=== PATIENT | male | born 1930 | race Caucasian/White ===

== ENCOUNTER 2016-12-05 12:28 | Emergency (ER) | payer OTHER ==
[~2016-12-05] VITALS: Ht 182.9 cm; Wt 86.0 kg
[~2016-12-05 12:28] MED LIST: ALBU0.5N2; ALBUAER2 INH; AMLO-110 PO; ATRINS NEB; GFNSR600 PO; LEVO-366 PO; OMEP20CA9 PO; OXGN; PRAV20TA PO; PRED10TA PO; PRLSR20 PO
[2016-12-05 12:31] VITALS: TEMP 36.5; Ht 182.9 cm; Wt 86.0 kg
[2016-12-05] MEDS ORDERED: OXYCODONE HCL IR 5 MG TAB (IMMEDIATE RELEASE) PO STA (12:55)
--- NOTE | 2016-12-05 12:56 | EMERGENCY ROOM VISIT NOTE ---
History Report prepared by Jaret: Nohemy Mansfield Under the Supervision of: Dr. Yeison White D.O. First contact with patient: 12:48 Chief Complaint: HIP PAIN Stated Complaint: HIP PAIN History of Present Illness The patient is an 86 year old male who presents to the Emergency Room with complaints of persistent hip pain since 0200 this morning. He states he has experienced intermittent right hip pain for years, but this morning it really worsened. He was unable to lay down or sleep because of his discomfort. The pain radiates into his low back and he rates his discomfort as an 8/10. Tylenol has provided no relief. The patient denies any recent trauma or injury. He denies any recent fevers, rashes or abdominal pain. Source of History: patient Onset: 199 this morning Position: other (right hip) Timing: other (persistent) Modifying Factors (Worsening): rest (laying down) Modifying Factors (Relieving): tylenol Associated Symptoms: No fevers, No abdominal pain, No rash Review of Systems See HPI for pertinent positives & negatives. A total of 10 systems reviewed and were otherwise negative. Past Medical & Surgical Medical Problems: (1) COPD (chronic obstructive pulmonary disease) Family History FHx: cancer FHx: heart disease Social History Smoking Status: Never Smoker Alcohol Use: none Drug Use: none Marital Status: Housing Status: assisted living Occupation Status: retired Current/Historical Medications Scheduled Amlodipine (Norvasc), 5 MG PO DAILY Budesonide/Formoterol Fumarate (Symbicort 80/4.5 Inhaler), 2 PUFFS INH DAILY Home O2 Therapy (Oxygen), 1.5 LITER NA HS & PRN Home O2 Therapy (Oxygen), 1.5 LITER NA PRN Levofloxacin (Levofloxacin), 500 MG PO UD Omeprazole (Prilosec), 20 MG PO DAILY Pravastatin (Pravachol ), 20 MG PO DAILY Prednisone (Prednisone Tab), 40 MG PO DAILY Prednisone Tab (Prednisone), 2 TABS PO DAILY Scheduled PRN Albuterol (Ventolin Hfa), 2 PUFFS INH for SOB/Wheezing Albuterol Sulf (Albuterol Sulfate), 2.5 MG INH Q4H PRN for Shortness of Breath Guaifenesin La (Guaifenesin Er), 600 MG PO Q12H PRN for Oxycodone Immediate Rel Tab (Roxicodone Ir), 1-2 TAB PO Q4H PRN for Severe Pain Allergies Coded Allergies: Moxifloxacin (Verified Allergy, Severe, SHORTNESS OF BREATH, 12/05/16) Potassium Iodide (Verified Allergy, Unknown, `, 12/05/16) Aspirin (Verified Adverse Reaction, Mild, UPSET STOMACH, 12/05/16) Physical Exam Vital Signs Date Time Temp Pulse Resp B/P (MAP) Pulse Ox O2 Delivery O2 Flow Rate FiO2 12/05/16 15:21 65 16 153/81 97 12/05/16 14:25 61 16 160/136 97 Room Air 12/05/16 12:31 36.5 71 18 170/90 97 Room Air Physical Exam GENERAL: Patient is awake, alert, anxious and uncomfortable appearing. EYES: The conjunctivae are clear. The pupils are round and reactive. EARS, NOSE, MOUTH AND THROAT: The nose is without any evidence of any deformity. Mucous membranes are moist tongue is midline NECK: The neck is nontender and supple. RESPIRATORY: Scattered expiratory wheezing in all lung oshea. No tachypnea or conversational dyspnea noted. CARDIOVASCULAR: Regular rate and rhythm noted there no murmurs rubs or gallops normal S1 normal S2 GASTROINTESTINAL: The abdomen is soft. Bowel sounds are present in all quadrants. Abdomen is nontender PELVIS: The Pelvis is stable. No tenderness to palpation is noted. BACK: No midline tenderness to palpation. There was right sided paravertebral muscle tenderness in the lumbar spine, and tenderness in the sciatic region. MUSCULOSKELETAL/EXTREMITIES: There is no evidence of gross deformity full range of motion is noted in the hips and shoulders SKIN: Pedal edema bilaterally. There is no obvious evidence of any rash. There are no petechiae, pallor or cyanosis noted. NEUROLOGIC: Achilles tendon reflexes are 2+ bilaterally. Great toe raise was symmetric. Patient is awake, alert and oriented x3 strength is symmetric patellar reflexes are 2+ bilaterally Medical Decision & Procedures ER Provider Diagnostic Interpretation: Radiology results as stated below per my review and radiologist interpretation: RIGHT HIP 2 VIEWS CLINICAL HISTORY: Right hip pain. No history of trauma. FINDINGS: AP and frog-leg views of the right hip are obtained. No prior studies are available for comparison at the time of dictation. The skeletal structures are osteopenic. No fracture is seen in the right hip or the visualized right hemipelvis. There is mild arthritic change in the right hip. Mild loss of joint space is noted medially. Mild degenerative change is noted in the right sacroiliac joint. The overlying soft tissues are within normal limits. IMPRESSION: Osteopenia and mild arthritic change as above. No acute bony abnormality is seen in the right hip. Electronically signed by: Toño Alcala M.D. 12/05/2016 2:19 PM L-SPINE MIN 4 VIEWS ROUTINE CLINICAL HISTORY: Low back and right hip pain COMPARISON STUDY: MRI performed December 2007 FINDINGS: There are moderately advanced multilevel degenerative changes with multilevel disc space narrowing. There is narrowing of the AP diameter spinal canal and underlying spinal stenosis is suspected. No acute fractures are visualized. No destructive lesions are evident. IMPRESSION: 1. No acute fractures 2. Moderate multilevel degenerative change with suspected underlying spinal stenosis Electronically signed by: George Young M.D. 12/05/2016 2:17 PM Medications Administered Medications (Trade) Dose Ordered Sig/Gilbert Route Start Time Stop Time Status Last Admin Dose Admin Dexamethasone Sodium Phosphate (Decadron Inj) 10 mg NOW ONCE IM 12/05/16 13:00 12/05/16 13:01 DC 12/05/16 13:28 10 MG Oxycodone HCl (Roxicodone Immediate Rel Tab) 5 mg NOW STAT PO 12/05/16 12:55 12/05/16 12:57 DC 12/05/16 13:26 5 MG ED Course 1250: The patient was evaluated in room B8. A complete history and physical examination were performed. 1255: Oxycodone HCl 5 mg PO. 1300: Decadron 10 mg IM. 1440: I reevaluated the patient. He is feeling much better. I discussed his results and discharge instructions and he verbalized complete understanding and agreement. Medical Decision Prior records/ancillary studies reviewed and summarized above. Nursing notes reviewed. Additional history obtained from Nursing Staff. Differential diagnosis: Etiologies such as metabolic, infection, hypo/hyperglycemia, electrolyte abnormalities, cardiac sources, intracerebral event, toxicologic, neurologic, as well as others were entertained. The patient is an 86-year-old male who presented to the emergency department with right sided reproducible low back pain. The pain appeared to be over his lumbar paravertebral musculature but also went into his right sacroiliac joint. The patient complained of hip pain but the hip pain appear to be posterior and lateral and I feel was more referred pain. I discussed the patient's radial graphic studies with him. He was treated with pain medication in the emergency department. He was also given steroids. On subsequent reevaluation he was feeling much better. He was encouraged to rest and avoid any strenuous activity. He was also encouraged to continue all medications as prescribed. He was encouraged to follow-up with his family doctor soon as possible for further evaluation for possible further testing if needed. He was also given encouraged return the emergency Department immediately if symptoms change worsen or the need arises. Medication Reconcilliation Current Medication List: was personally reviewed by me Blood Pressure Screening Patient's blood pressure: Elevated blood pressure Blood pressure disposition: Referred to PCP Impression Primary Impression: Low back pain Additional Impression: Sacroiliitis Scribe Attestation The scribe's documentation has been prepared under my direction and personally reviewed by me in its entirety. I confirm that the note above accurately reflects all work, treatment, procedures, and medical decision making performed by me. Departure Information Dispostion Home / Self-Care Prescriptions Oxycodone Immediate Rel Tab (ROXICODONE IR) 5 Mg Tab 1-2 TAB PO Q4H Y for Severe Pain, #24 TAB Prov: Yeison White, DO 12/05/16 Prednisone (Prednisone Tab) 20 Mg Tab 40 MG PO DAILY, #10 TAB Prov: Yeison White, DO 12/05/16 Patient Instructions ED Low Back Pain Injury, My [facility] Additional Instructions Call your family to schedule a follow-up appointment. Rest and avoid any strenuous activity. Continue all medications as prescribed. Return to the emergency department immediately if symptoms change worsen or the need arises. Problem Qualifiers Primary Impression: Low back pain Chronicity: acute Back pain laterality: right Sciatica presence: without sciatica Qualified Codes: M54.5 - Low back pain
[2016-12-05] MEDS ORDERED: DEXAMETHASONE SOD INJ 10 MG/ML VIAL IM ONE (13:00)
--- NOTE | 2016-12-05 14:18 | DIAGNOSTIC IMAGING REPORT ---
L-SPINE MIN 4 VIEWS ROUTINE CLINICAL HISTORY: Low back and right hip pain COMPARISON STUDY: MRI performed December 2007 FINDINGS: There are moderately advanced multilevel degenerative changes with multilevel disc space narrowing. There is narrowing of the AP diameter spinal canal and underlying spinal stenosis is suspected. No acute fractures are visualized. No destructive lesions are evident. IMPRESSION: 1. No acute fractures 2. Moderate multilevel degenerative change with suspected underlying spinal stenosis Electronically signed by: George Young M.D. 12/05/2016 2:17 PM Dictated Date/Time: 12/05/2016 2:15 PM
[2016-12-05] MEDS ORDERED: ALBINSX INH (14:19)
[2016-12-05] MEDS ORDERED: SYMIN/8045 INH (14:19)
[2016-12-05] MEDS ORDERED: GUAI1TAB75 PO (14:19)
[2016-12-05] MEDS ORDERED: PRVHFAIN INH (14:19)
[2016-12-05] MEDS ORDERED: LVQ500 PO (14:19)
[2016-12-05] MEDS ORDERED: OXGN (14:19)
--- NOTE | 2016-12-05 14:20 | DIAGNOSTIC IMAGING REPORT ---
RIGHT HIP 2 VIEWS CLINICAL HISTORY: Right hip pain. No history of trauma. FINDINGS: AP and frog-leg views of the right hip are obtained. No prior studies are available for comparison at the time of dictation. The skeletal structures are osteopenic. No fracture is seen in the right hip or the visualized right hemipelvis. There is mild arthritic change in the right hip. Mild loss of joint space is noted medially. Mild degenerative change is noted in the right sacroiliac joint. The overlying soft tissues are within normal limits. IMPRESSION: Osteopenia and mild arthritic change as above. No acute bony abnormality is seen in the right hip. Electronically signed by: Toño Alcala M.D. 12/05/2016 2:19 PM Dictated Date/Time: 12/05/2016 2:18 PM
[2016-12-05] MEDS ORDERED: PRED20TA2 PO (14:44)
[2016-12-05] MEDS ORDERED: OXYC1TAB3 PO (14:44)
[2016-12-05 15:21] VITALS: BP 153/81; PULSE 65; O2SAT 97
== END 2016-12-05 15:22 | disposition home or self-care (01) ==
LOC: C.EDB 12:29
DX: M54.5 Low back pain (principal); M46.1 Sacroiliitis, not elsewhere classified; J44.9 Chronic obstructive pulmonary disease, unspecified; Z80.9 Family history of malignant neoplasm, unspecified; Z82.49 Family history of ischemic heart disease and other diseases of the circulatory system; Z79.899 Other long term (current) drug therapy; Z79.52 Long term (current) use of systemic steroids

== ENCOUNTER → 2017-06-27 | Outpatient (CLI) | payer OTHER ==
[~2017-06-27] MED LIST changes: +ALBINSX INH; -ALBU0.5N2; -ALBUAER2 INH; -ATRINS NEB; -GFNSR600 PO; +GUAI1TAB75 PO; -LEVO-366 PO; +LVQ500 PO; -PRLSR20 PO; +PRVHFAIN INH; +SYMIN/8045 INH
--- NOTE | 2017-06-27 14:45 | DIAGNOSTIC IMAGING REPORT ---
CHEST 2 VIEWS ROUTINE HISTORY: 86 years-old Male R06.02 acute shortness of breath COMPARISON: Chest radiographs 04/12/2016, chest CT 04/20/2016 TECHNIQUE: PA and lateral views of the chest FINDINGS: Cardiac silhouette is within normal limits. Lungs are hyperinflated with emphysematous changes redemonstrated. Confluent areas of pleural-parenchymal scarring and bronchiectasis again noted within the upper lung zones bilaterally causing hilar retraction and elevation. There is no pneumothorax, pleural effusion or new focal airspace consolidation. Bones appear grossly intact. IMPRESSION: 1. Emphysema without acute process. 2. Unchanged confluent areas of pleural-parenchymal scarring/fibrosis and bronchiectasis again noted within the upper lung zones bilaterally causing hilar retraction and elevation. The above report was generated using voice recognition software. It may contain grammatical, syntax or spelling errors. Electronically signed by: Amado Swain M.D. 06/27/2017 2:43 PM Dictated Date/Time: 06/27/2017 2:41 PM
== END | disposition home or self-care (01) ==
LOC: C.RAD1850 14:28
PROVIDERS: ATTEND Physician Assistant
DX: R06.02 Shortness of breath (principal); J43.9 Emphysema, unspecified; R91.8 Other nonspecific abnormal finding of lung field

== ENCOUNTER 2018-07-19 10:13 | Inpatient (IN) ==
[2018-07-19] MEDS ORDERED: LEVALBUTEROL 1.25MG/0.5ML NEB NEB STA (11:27)
--- NOTE | 2018-07-19 11:46 | XRay Report ---
XR chest 1V portable CLINICAL HISTORY: Atypical chest pain COMPARISON STUDY: 04/09/2018 FINDINGS: There is persistent pulmonary emphysema. There is stable bilateral superior hilar retractio n. There is biapical fibronodular scarring with right apical pleural thickening. There are no new are as of parenchymal consolidation. There is no failure. There is minimal blunting of the lateral costop hrenic angles.[ IMPRESSION: 1. No significant change from the preceding study 2. Persistent emphysema with stable biapical scarring and superior hilar retraction Electronically signed by: George Young M.D. 07/19/2018 11:45 AM
[2018-07-19] MEDS ORDERED: MAGNESIUM SULFATE / D5W 1 GM/100 ML BAG IV ONE (11:51)
[2018-07-19] MEDS ORDERED: methylPREDNISolone 125 MG/2 ML VIAL IV STA (11:51)
[2018-07-19] MEDS ORDERED: DOXYCYCLINE HYCLATE 100 MG CAP PO STA (11:52)
[2018-07-19 12:11] LABS: Hemoglobin 13.5 g/dL (14.0-18.0); Mean Corpuscular Hemoglobin 31.3 pg (25-34); Mean Corpuscular Hgb Conc 33.8 g/dL (32-36); Mean Corpuscular Volume 92.8 fL (80-100); Mean Platelet Volume 11.2 fL (7.4-10.4); Platelet Count 118 K/uL (130-400); RDW Coefficient of Variation 13.6 % (11.5-14.5); RDW Standard Deviation 46.4 fL (36.4-46.3); Red Blood Count 4.31 M/uL (4.7-6.1); White Blood Count 2.01 K/uL (4.8-10.8)
[2018-07-19 12:16] LABS: Alanine Aminotransferase 21 U/L (12-78); Albumin Level 3.5 gm/dl (3.4-5.0); Aspartate Aminotransferase 23 U/L (15-37); BUN Creatinine Ratio 6.2 (10-20); Blood Urea Nitrogen 6 mg/dl (7-18); Calcium 8.9 mg/dl (8.5-10.1); Carbon Dioxide 28 mmol/L (21-32); Chloride 108 mmol/L (98-107); Creatinine Clr Calc Pharmacy 57.1 ml/min; Est GFR (African American) 78.1; Est GFR (Non-African American) 67.4; Glucose 97 mg/dl (70-99); Lipase 106 U/L (73-393); Potassium 3.8 mmol/L (3.5-5.1); Sodium 141 mmol/L (136-145)
[2018-07-19 12:21] LABS: Albumin Globulin Ratio 1.1 (0.9-2); Alkaline Phosphatase 77 U/L (45-117); Bilirubin,Total 0.4 mg/dl (0.2-1); Creatine Kinase 140 U/L (39-308); Creatine Kinase MB 4.1 ng/ml (0.5-3.6); Globulin 3.1 gm/dl (2.5-4.0); NT Pro B Type Natriuretic Pept 127 pg/ml (0-1800); Total Protein 6.6 gm/dl (6.4-8.2); Troponin I < 0.015 ng/ml (0-0.045)
[2018-07-19 12:39] LABS: Influenza B virus by PCR Neg for Influ B (Neg)
[2018-07-19 12:59] LABS: RBC Morphology Unremarkable
[2018-07-19 13:09] LABS: ALC (manual) 0.96 K/uL (1.2-3.4); Basophils # (manual) 0.02 K/uL (0-0.2); Basophils % (manual) 0.9 %; Eosinophils # (manual) 0.03 K/uL (0-0.5); Eosinophils % (manual) 1.7 %; Lymphocytes # (manual) 0.38 K/uL (1.2-3.4); Lymphocytes % (manual) 19.1 %; Monocytes # (manual) 0.25 K/uL (0.11-0.59); Monocytes % (manual) 12.2 %; Neutrophils # (manual) 0.75 K/uL (1.4-6.5); Neutrophils % (manual) 37.4 %; Reactive Lymphocytes # (manual) 0.58 K/uL
[2018-07-19] MEDS ORDERED: OSELTAMIVIR PHOSPHATE 75 MG CAP PO STA (13:32)
--- NOTE | 2018-07-19 14:23 | History & Physical Report ---
Date of Service July 19, 2018 Assessment & Plan (1) Flu: Patient presently afebrile, hemodynamically stable. Adequate oxygenation on 3L [place]. Mild respiratory distress and hypoxia noted with ambulation. Influenza A positive -Admit to medical floor with telemetry monitoring -Tamiflu 75mg po BID -Tylenol as needed for fever/pain -Check procalcitonin although no obvious infiltrate on CXR to suggest PNA (2) COPD (chronic obstructive pulmonary disease): Patient with history of O2 dependent COPD. -Supplemental O2 as needed -DuoNebs q 4 hours -Albuterol q 2 hours PRN -Flutter valve and vibration vest -IS -Pulmonary consult - patient is followed by Geovanni Nicolas -Family reports some acute mental status changes with steroid use during last hospital stay. Possibly secondary to medication effects, delirium. Will avoid systemic steroids for now. Encourage non-pharmacologic delirium prevention strategies to include frequent orientation, minimizing interruptions in sleep, maintaining regular day/night schedule and ambulation when safe. (3) Hypertension: Blood pressure well controlled at present -Continue Amlodipine 5mg po daily -Continue to monitor (4) Dyslipidemia: Chronic -Continue Pravastatin daily F/E/N- Heplock. Encourage PO intake, low Na diet. Monitor electroltyes and replete as needed Ppx - Lovenox 30 Code - DNR/DNI per discussion with patient Dispo - Med-Tele History of Present Illness Chief Complaint: SOB Primary Care Provider: Nilay Nicolas PA-C Mr. 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 Symptoms began the evening of 07/15 while patient was in [place] on a casino trip. His SOB progressed with severe worsening in the last two days. He becomes quite dyspneic with ambulating short distances. Also complaining of chills and body aches. One episode of nausea with no vomiting. No abdominal pain/diarrhea/constipation. He additionally denies CP/palpitations/orthopnea/edema. No history of DVT. He uses a nebulizer machine with Albuterol twice daily. He also uses a vibration vest as well. He increased his O2 at home to 4L. Patient travelled to [place] on Sunday and [place] on Sunday for a casino trip. In the ER he was slightly tachycardic to 102bpm, slighlty tachypnic at 89% on 3L [place]. Patient with mild respiratory distress after ambulating to the restroom in his room. Pursed lip breathing and hypoxia which resolved with being in bed and still. ER Course: Doxycycline, Levalbuterol, Magnesium sulfate 1gm, Solumedrol 125mg Allergies Allergy/AdvReac Type Severity Reaction Status Date / Time moxifloxacin Allergy Severe SHORTNESS Verified 07/19/18 10:56 OF BREATH potassium iodide Allergy Unknown ` Verified 07/19/18 10:56 aspirin AdvReac Mild UPSET Verified 07/19/18 10:56 STOMACH Home Medications Home Medications Medication Instructions Recorded Confirmed Type albuterol sulfate 2.5 mg INHALATION QID 03/16/18 07/19/18 History albuterol sulfate [Ventolin HFA] 2 puff INHALATION Q6H PRN 03/16/18 07/19/18 History omeprazole 20 mg PO DAILY PRN 03/16/18 07/19/18 History pravastatin 20 mg PO HS 03/16/18 07/19/18 History budesonide-formoterol [Symbicort] 2 inha INH BID #10.2 gm 03/21/18 07/19/18 Rx amlodipine 5 mg PO HS 07/19/18 07/19/18 History Past Med/Surg History Medical History COPD exacerbation (Acute 06/24/13) COPD (chronic obstructive pulmonary disease) 3L home O2 Pneumonia (Acute 06/24/13) Delirium Surgical History H/O colectomy History of lung surgery Family History Other No pertinent family history in first degree relatives Social History Preferred Language: Georgian Communication Ability: Effective 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 Beliefs That Will Affect Care: None marital status: Current Living Situation: Significant Other Other Information That Helps Us Care for You: No Feels Safe at Home: Yes Safety Concerns: Feels Safe At This Time Smoking Status: Former smoker Hx Alcohol Use: Yes Hx Substance Use: No Review of Systems All systems reviewed & are unremarkable except as noted in HPI & below Physical Exam Vital Signs (Past 24 Hours): Last Vital Signs Temp 37 C 07/19/18 10:25 Pulse 102 H 07/19/18 13:00 Resp 24 07/19/18 13:00 BP 148/80 H 07/19/18 11:27 Pulse Ox 89 L 07/19/18 13:00 Physical Exam: General: elderly male resting comfortably, NAD, non-toxic in appearance, AA&O x 4 Skin: warm, dry, intact, no rashes or lesions HEENT: NC/AT, PERRL, EOMI, anicteric sclera, conjunctiva without injection, external ear normal to inspection and nontender, nares patent, moist mucus membranes, dentures in place, no oropharyngeal lesions, neck supple, trachea midline, no LAD, no thyromegaly, no JVD Heart: +S1/S2, regular with respiratory variation, no m/r/g Lungs: diminished breath sounds, equal air entry bilaterally, coarse BS bilaterally, mild degree of end-expiratory wheezing with prolonged expiratory phase Abd: +BS, soft, NT/ND, no masses/organomegaly/ascites Ext: warm, 2+ pulses in UE/LE bilaterally, no clubbing/cyanosis or edema Neuro: nonfocal, patient AA&O x 4, speech intact, no facial droop, moving all extremities on command with equal strength 5/5 Results & Data Laboratory Results Lab Results 07/19/18 07/19/18 07/19/18 Range/Units 11:45 11:45 11:57 WBC 2.01 L (4.8-10.8) K/uL RBC 4.31 L (4.7-6.1) M/uL Hgb 13.5 L (14.0-18.0) g/dL Hct 40.0 L (42-52) % MCV 92.8 (80-100) fL MCH 31.3 (25-34) pg MCHC 33.8 (32-36) g/dL RDW Std Deviation 46.4 H (36.4-46.3) fL RDW Coeff of Iesha 13.6 (11.5-14.5) % Plt Count 118 L (130-400) K/uL MPV 11.2 H (7.4-10.4) fL Neutrophils % (Manual) 37.4 % Lymphocytes % (Manual) 19.1 % Reactive Lymphs % (Man) 28.7 % Monocytes % (Manual) 12.2 % Eosinophils % (Manual) 1.7 % Basophils % (Manual) 0.9 % Neutrophils # (Manual) 0.75 L (1.4-6.5) K/uL Total Absolute Neuts 0.75 L* (1.4-6.5) K/uL Lymphocytes # (Manual) 0.38 L (1.2-3.4) K/uL Reactive Lymphs # 0.58 K/uL Total Abs Lymphocytes 0.96 L (1.2-3.4) K/uL Monocytes # (Manual) 0.25 (0.11-0.59) K/uL Eosinophils # (Manual) 0.03 (0-0.5) K/uL Basophils # (Manual) 0.02 (0-0.2) K/uL RBC Morphology Unremarkable Sodium 141 (136-145) mmol/L Potassium 3.8 (3.5-5.1) mmol/L Chloride 108 H (98-107) mmol/L Carbon Dioxide 28 (21-32) mmol/L Anion Gap 6.0 (3-11) BUN 6 L (7-18) mg/dl Creatinine 1.00 (0.6-1.4) mg/dl Est Cr Clr Drug Dosing 57.1 ml/min Est GFR ( Amer) 78.1 Est GFR (Non-Af Amer) 67.4 BUN/Creatinine Ratio 6.2 L (10-20) Glucose 97 (70-99) mg/dl Calcium 8.9 (8.5-10.1) mg/dl Total Bilirubin 0.4 (0.2-1) mg/dl AST 23 (15-37) U/L ALT 21 (12-78) U/L Alkaline Phosphatase 77 (45-117) U/L Total Creatine Kinase 140 (39-308) U/L CK-MB (CK-2) 4.1 H (0.5-3.6) ng/ml CK/CKMB % Calc 2.9 (0-3.0) Troponin I < 0.015 (0-0.045) ng/ml NT-Pro-B Natriuret Pep 127 (0-1800) pg/ml Total Protein 6.6 (6.4-8.2) gm/dl Albumin 3.5 (3.4-5.0) gm/dl Globulin 3.1 (2.5-4.0) gm/dl Albumin/Globulin Ratio 1.1 (0.9-2) Lipase 106 (73-393) U/L Influenza Type A (PCR) Pos for Influ A A* (Neg) Influenza Type B (PCR) Neg for Influ B (Neg) Diagnostic Findings XR chest 1V portable CLINICAL HISTORY: Atypical chest pain COMPARISON STUDY: 04/09/2018 FINDINGS: There is persistent pulmonary emphysema. There is stable bilateral superior hilar retraction. There is biapical fibronodular scarring with right apical pleural thickening. There are no new areas of parenchymal consolidation. There is no failure. There is minimal blunting of the lateral costophrenic ang les.[ IMPRESSION: 1. No significant change from the preceding study 2. Persistent emphysema with stable biapical scarring and superior hilar retraction Electronically signed by: George Young M.D. 07/19/2018 11:45 AM Dictated: 07/19/18 1143 Transcribed: 07/19/18 1143 ECG Additional Comments: The study shows NSR at 74bpm, normal axis and intervals, no acute ischemic changes Code Status & VTE Plan Code Status DNR per discussion with patient VTE Prophylaxis Plan VTE Prophylaxis will be ordered: Yes (1) COPD (chronic obstructive pulmonary disease) COPD type: unspecified COPD Qualified Code(s): J44.9 - Chronic obstructive pulmonary disease, unspecified (2) Hypertension Hypertension type: essential hypertension Qualified Code(s): I10 - Essential (primary) hypertension
--- NOTE | 2018-07-19 14:50 | Emergency Department Note ---
Entered by Griselda Messer acting as a scribe for History of Present Illness General Chief complaint: Shortness of Breath/Dyspnea Stated complaint: sob/cough Time Seen by Provider: 07/19/18 11:03 Source: patient and family Mode of arrival: ambulatory Limitations: no limitations History of Present Illness Onset (ago): hour(s) (this morning when he woke up) Location: chest Severity: similar to prior episodes Pain Consistency: + constant Quality: + other (The patient states that it feels like his lungs are filled up with fluid.) Associated symptoms: + shortness of breath The patient is an 88 year old male who presents to the ED with complaints of constant shortness of breath that onset this morning when he woke up. The patient states that it feels like his lungs are filled up with fluid. He notes that this is similar to a previous episode on March 16 of this year. He states that he is on 3 liters of oxygen at home. Home Medications Home Medications Medication Instructions Recorded Confirmed Type albuterol sulfate 2.5 mg INHALATION QID 03/16/18 07/19/18 History albuterol sulfate [Ventolin HFA] 2 puff INHALATION Q6H PRN 03/16/18 07/19/18 History omeprazole 20 mg PO DAILY PRN 03/16/18 07/19/18 History pravastatin 20 mg PO HS 03/16/18 07/19/18 History budesonide-formoterol [Symbicort] 2 inha INH BID #10.2 gm 03/21/18 07/19/18 Rx amlodipine 5 mg PO HS 07/19/18 07/19/18 History Allergies Allergy/AdvReac Type Severity Reaction Status Date / Time moxifloxacin Allergy Severe SHORTNESS Verified 07/19/18 10:56 OF BREATH potassium iodide Allergy Unknown ` Verified 07/19/18 10:56 aspirin AdvReac Mild UPSET Verified 07/19/18 10:56 STOMACH Past Med/Surg History Medical History COPD exacerbation (Acute 06/24/13) COPD (chronic obstructive pulmonary disease) Pneumonia (Acute 06/24/13) Family History Other No pertinent family history in first degree relatives Social History Preferred Language: Malagasy Beliefs That Will Affect Care: None marital status: Current Living Situation: Spouse Feels Safe at Home: Yes Smoking Status: Never smoker Hx Alcohol Use: No Hx Substance Use: No Review of Systems See HPI for pertinent positives & negatives. and A total of 10 systems reviewed and were otherwise negative Physical Exam Vital Signs Vital Signs - 24 hr 07/19/18 10:25 07/19/18 11:22 07/19/18 11:27 Temperature 37 C Temperature Source Oral Sepsis Recent Fever Within 48 Hours No Sepsis Action Taken by Nursing No Action Required Pulse Rate 82 78 Pulse Rate [Right Finger] 75 Pulse Rhythm Regular Pulse Strength Normal Respiratory Rate 18 22 Respiratory Effort / Characteristics Spontaneous Short of Breath SOB on Exertion Non-Labored Spontaneous Respiratory Depth Shallow Normal Respiratory Pattern Tachypnea Regular Blood Pressure 152/97 H Blood Pressure [Right Arm] 148/80 H Blood Pressure Mean 115 Blood Pressure Mean [Right Arm] 102 Blood Pressure Position Lying Blood Pressure Position [Right Arm] Sitting Pulse Oximetry 97 99 100 Oxygen Delivery Method Nasal Cannula Nasal Cannula Nasal Cannula Oxygen Flow Rate 3 3 3 07/19/18 13:00 Temperature Temperature Source Sepsis Recent Fever Within 48 Hours Sepsis Action Taken by Nursing Pulse Rate Pulse Rate [Right Finger] 102 H Pulse Rhythm Pulse Strength Respiratory Rate 24 Respiratory Effort / Characteristics Labored SOB on Exertion Respiratory Depth Normal Respiratory Pattern Blood Pressure Blood Pressure [Right Arm] Blood Pressure Mean Blood Pressure Mean [Right Arm] Blood Pressure Position Blood Pressure Position [Right Arm] Pulse Oximetry 89 L Oxygen Delivery Method Nasal Cannula Oxygen Flow Rate 3 GENERAL: Awake, alert, well-appearing, in no distress HENT: Normocephalic, atraumatic. Oropharynx unremarkable. EYES: Normal conjunctiva. Sclera non-icteric. NECK: Supple. No nuchal rigidity. FROM. No masses. RESPIRATORY: Wheezing throughout all lung oshea. CARDIAC: Normal rate. Normal rhythm. No murmurs. No rubs. Extremities warm and well perfused. Pulses equal. No JVD. GI: Soft, non-distended. No tenderness to palpation. No rebound or guarding. No masses. RECTAL: Deferred. MUSCULOSKELETAL: Atraumatic. Chest examination reveals no tenderness. The back is symmetrical on inspection without obvious abnormality. There is no CVA tenderness to palpation. No joint edema. LOWER EXTREMITIES: Calves are equal size bilaterally and non-tender. No edema. No discoloration. NEURO: Normal sensorium. No sensory or motor deficits noted. Course 1122: Past medical records reviewed. The patient was evaluated in room C12, and a complete history and physical examination were performed. 1313: I reviewed the patient's case with Ayni Mathews Hospitalist- [facility]. She will evaluate the patient for further management. Administered Medications Discontinued Medications Doxycycline Hyclate (Vibramycin) 100 mg PO NOW STA Stop: 07/19/18 11:53 Last Admin: 07/19/18 12:14 Dose: 100 mg Documented by: [id number] Magnesium Sulfate/Dextrose (Magnesium Sulfate / D5w) 1 gm in 100 mls @ 100 mls/hr IV ONE ONE Stop: 07/19/18 12:50 Last Infusion: 07/19/18 13:57 Dose: 0 mls/hr Documented by: [id number] Admin: 07/19/18 12:13 Dose: 100 mls/hr Documented by: [id number] Levalbuterol HCl (Xopenex 1.25mg/0.5ml Neb) 1.25 mg NEB NOW STA Stop: 07/19/18 11:28 Last Admin: 07/19/18 12:13 Dose: 1.25 mg Documented by: [id number] Methylprednisolone (Solumedrol) 125 mg IV NOW STA Stop: 07/19/18 11:52 Last Admin: 07/19/18 12:14 Dose: 125 mg Documented by: [id number] Oseltamivir Phosphate (Tamiflu) 75 mg PO NOW STA Stop: 07/19/18 13:33 Last Admin: 07/19/18 14:00 Dose: 75 mg Documented by: [id number] Medical Decision Making Differential Diagnosis Differential diagnosis: Etiologies such as infections, reactive airway disease, COPD, pneumonia, pleural effusion, pulmonary edema, ARDS, pneumothorax, CHF, cardiac ischemia, cardiac tamponade, dysrhythmia, anemia, pulmonary embolism, musculoskeletal, gastrointestinal process, as well as others were entertained. Medical Records Attestation: I reviewed the patient's medical records. Home Medications Current Medication List: was personally reviewed by me Laboratory Data Attestation: I reviewed the patient's lab results. Result diagrams: 07/19/18 11:45 07/19/18 11:45 Lab Results 03/29/19 03/29/19 03/29/19 Range/Units 11:45 11:45 11:57 WBC 2.01 L (4.8-10.8) K/uL RBC 4.31 L (4.7-6.1) M/uL Hgb 13.5 L (14.0-18.0) g/dL Hct 40.0 L (42-52) % MCV 92.8 (80-100) fL MCH 31.3 (25-34) pg MCHC 33.8 (32-36) g/dL RDW Std Deviation 46.4 H (36.4-46.3) fL RDW Coeff of Iesha 13.6 (11.5-14.5) % Plt Count 118 L (130-400) K/uL MPV 11.2 H (7.4-10.4) fL Neutrophils % (Manual) 37.4 % Lymphocytes % (Manual) 19.1 % Reactive Lymphs % (Man) 28.7 % Monocytes % (Manual) 12.2 % Eosinophils % (Manual) 1.7 % Basophils % (Manual) 0.9 % Neutrophils # (Manual) 0.75 L (1.4-6.5) K/uL Total Absolute Neuts 0.75 L* (1.4-6.5) K/uL Lymphocytes # (Manual) 0.38 L (1.2-3.4) K/uL Reactive Lymphs # 0.58 K/uL Total Abs Lymphocytes 0.96 L (1.2-3.4) K/uL Monocytes # (Manual) 0.25 (0.11-0.59) K/uL Eosinophils # (Manual) 0.03 (0-0.5) K/uL Basophils # (Manual) 0.02 (0-0.2) K/uL RBC Morphology Unremarkable Sodium 141 (136-145) mmol/L Potassium 3.8 (3.5-5.1) mmol/L Chloride 108 H (98-107) mmol/L Carbon Dioxide 28 (21-32) mmol/L Anion Gap 6.0 (3-11) BUN 6 L (7-18) mg/dl Creatinine 1.00 (0.6-1.4) mg/dl Est Cr Clr Drug Dosing 57.1 ml/min Est GFR ( Amer) 78.1 Est GFR (Non-Af Amer) 67.4 BUN/Creatinine Ratio 6.2 L (10-20) Glucose 97 (70-99) mg/dl Calcium 8.9 (8.5-10.1) mg/dl Total Bilirubin 0.4 (0.2-1) mg/dl AST 23 (15-37) U/L ALT 21 (12-78) U/L Alkaline Phosphatase 77 (45-117) U/L Total Creatine Kinase 140 (39-308) U/L CK-MB (CK-2) 4.1 H (0.5-3.6) ng/ml CK/CKMB % Calc 2.9 (0-3.0) Troponin I < 0.015 (0-0.045) ng/ml NT-Pro-B Natriuret Pep 127 (0-1800) pg/ml Total Protein 6.6 (6.4-8.2) gm/dl Albumin 3.5 (3.4-5.0) gm/dl Globulin 3.1 (2.5-4.0) gm/dl Albumin/Globulin Ratio 1.1 (0.9-2) Lipase 106 (73-393) U/L Influenza Type A (PCR) Pos for Influ A A* (Neg) Influenza Type B (PCR) Neg for Influ B (Neg) Imaging Data Radiologist's Impression: Radiology results as stated below per my review and the radiologist's interpretation: XR chest 1V portable CLINICAL HISTORY: Atypical chest pain COMPARISON STUDY: 04/09/2018 FINDINGS: There is persistent pulmonary emphysema. There is stable bilateral superior hilar retraction. There is biapical fibronodular scarring with right apical pleural thickening. There are no new areas of parenchymal consolidation. There is no failure. There is minimal blunting of the lateral costophrenic angles.[ IMPRESSION: 1. No significant change from the preceding study 2. Persistent emphysema with stable biapical scarring and superior hilar retraction Electronically signed by: George Young M.D. 07/19/2018 11:45 AM Dictated: 07/19/18 1143 Transcribed: 07/19/18 1143 ECG Data Attestation: I personally reviewed and interpreted this ECG as follows: Indication: SOB/dyspnea Rate (beats per minute): 74 Rhythm: sinus rhythm Findings: + other (Old septal infarct) and + 1st degree AV block Change: no significant change Blood Pressure Blood Pressure Findings: Elevated blood pressure Blood Pressure Disposition: further management by hospitalist MDM Narrative This is a 78-year-old male who presents emergency department complaining of shortness of breath. Patient was given an hour-long breathing treatment here in the emergency department. In addition he was given Solu-Medrol and started on doxycycline. Patient was found to be positive for influenza therefore was also started on Tamiflu. I am concerned that the patient appears extremely short of breath and continues to be hypoxic despite his 3 L of oxygen. Based on this I did discuss the case with the hospitalist service who agreed to admit the patient. Patient and family were in agreement with the treatment plan. Impression & Plan Flu, COPD exacerbation Discharge Plan Visit Data Chief Complaint: Shortness of Breath/Dyspnea Stated Complaint: sob/cough ED Provider: Javy Vera Discharge Problem: Flu, COPD exacerbation Patient Disposition: Being Evaluated by Hospitalist Forms Stand Alone Forms: My [facility] Prescriptions Prescriptions: No Action amlodipine 5 mg tablet 5 mg PO HS RF: 0 albuterol sulfate 2.5 mg /3 mL (0.083 %) Solution For Nebulization 2.5 mg INHALATION QID RF: 0 omeprazole 20 mg Capsule,Delayed Release(Dr/Ec) 20 mg PO DAILY PRN (Reason: Gi Upset) RF: 0 pravastatin 20 mg Tablet 20 mg PO HS RF: 0 albuterol sulfate [Ventolin HFA] 90 mcg/actuation Hfa Aerosol Inhaler 2 puff INHALATION Q6H PRN (Reason: wheezing) RF: 0 Symbicort 160-4.5 mcg/actuation HFA aerosol inhaler 2 inha INH BID Qty: 10.2 RF: 3 Referrals Referrals: Nilay Nicolas PA-C [Primary Care Provider] - The scribe's documentation has been prepared under my direction and personally reviewed by me in its entirety. I confirm that the note above accurately reflects all work, treatment, procedures, and medical decision making performed by me.
[2018-07-19] MEDS ORDERED: ALBUTEROL 0.5% NEB SOLN 2.5 MG/0.5 ML VIAL NEB PRN (16:32)
[2018-07-19] MEDS ORDERED: ACETAMINOPHEN 325 MG TAB PO PRN (16:32)
[2018-07-19 17:28] LABS: Partial Thromboplastin Ratio 1.2; Prothrombin Time 10.2 Seconds (9.0-12.0)
[2018-07-19 17:34] LABS: Magnesium 2.5 mg/dl (1.8-2.4); Phosphorus 3.2 mg/dl (2.5-4.9)
[2018-07-19] MEDS: ALBUT/IPRATROP 3MG/0.5MG NEB 3 ML VIAL NEB SCH ×3 (17:56→23:03)
[2018-07-19] MEDS: ENOXAPARIN INJ 30 MG/0.3 ML SYR SQ SCH (20:13)
[2018-07-19] MEDS: AMLODIPINE BESYLATE 5 MG TAB PO SCH (20:14)
[2018-07-19] MEDS: PRAVASTATIN SOD 20 MG TAB PO SCH (20:14)
[2018-07-19] MEDS: OSELTAMIVIR PHOSPHATE SUSP 30 MG/5 ML UDP PO SCH (20:25)
[2018-07-19] MEDS ORDERED: OSELTAMIVIR PHOSPHATE 75 MG CAP PO SCH (21:00)
[2018-07-19] MEDS: PANTOprazole 40 MG TAB PO PRN (22:06)
--- NOTE | 2018-07-19 23:53 | Consultation Report ---
DATE OF CONSULTATION: 07/19/2018 TIME: 6:40 p.m. REPORT OF CONSULTATION: The patient was seen in room 258 bed 1. He is an 88-year-old male who presented to the Emergency Room today. His complaints were increased cough and increasing shortness of breath. This had become much worse over the past 48 hours. He did not have any chills, fevers, or sweats. He has had no chest pains. The patient earlier in the week had gone to a casino in [facility]. He suspects that he became ill from exposure to someone there. He was tested as positive for influenza A. He did have a flu shot this past fall. The patient does have a history of COPD and bronchiectasis. Clearing secretions has been a chronic problem. He has been on a vibration vest over the past several months which seemingly had helped up until the present time. He was last hospitalized from 03/16/2018 until 03/21/2018 with a left lower lobe pneumonia. The patient also carries a history of silicosis. He previously worked in a [employer] business where he states there was significant silica. Other pulmonary history includes history of a lung CA in approximately 1997. He had surgery on the right lung for removal of this tumor. He did not have any chemotherapy or radiation therapy. PAST SURGICAL HISTORY: 1. Colon resection in 2000. 2. Thoracotomy in 1997. PAST MEDICAL HISTORY: 1. Hypertension. 2. Hyperlipidemia. 3. GERD. 4. History of SVT. 5. Pulmonary problems as noted in history of present illness. SOCIAL HISTORY: Tobacco. The patient smoked cigarettes from a teenager until 1966. He then smoked cigars until 1979 when he quit smoking. Reportedly, he was told at that time that he had a mild heart attack. Alcohol use is occasional. The patient admits he does like to drink alcohol. FAMILY HISTORY: Positive for hypertension and coronary artery disease. MEDICATIONS AT HOME: 1. Neb treatments with albuterol, which he usually does twice per day. 2. Ventolin HFA p.r.n. 3. Amlodipine 5 mg at bedtime. 4. Symbicort 2 puffs b.i.d. 5. Omeprazole 20 mg daily p.r.n. 6. Pravastatin 20 mg at bedtime. REVIEW OF SYSTEMS: The patient's energy level has been decreased slightly. Denies headache or dizziness. Appetite has been good. Denies any bowel complaints. Denies urine complaints. Review of systems is negative except as noted above. Ten systems reviewed. PHYSICAL EXAMINATION: GENERAL: The patient is an 88-year-old male who was cooperative, alert and oriented. He was in no distress at rest, but he had very noisy respirations. Weight is 88 kilograms with BMI 26.3. HEENT: Pupils were reactive. Nasal cannula was in place. Mouth exam showed dentures. Pharynx was a Mallampati grade 2. No lymph nodes palpable. CARDIAC: Rate is 85 per minute. Rhythm is regular. Blood pressure is 154/82. LUNGS: Respiratory rate was 24 per minute. Diffuse rhonchi were heard both anteriorly and posteriorly. Saturation was 97% on 3 liters at the time of my exam. There was no accessory muscle use. Scar was noted from prior thoracotomy. ABDOMEN: Inspection of the abdomen reveals a scar on the right side of his abdomen from prior colon resection. Bowel sounds were normal. There was no tenderness to palpation, masses, or organomegaly. EXTREMITIES: Showed no cyanosis, clubbing or edema. LABORATORY DATA: White count is 2.01. There were several WBCs noted over the past 5 months and none of them were low. Hemoglobin 13.5. Platelets 118,000. This is also lower than his norm. Percent neutrophils was noted to be 37.4. Lymphocytes was 19.1. Reactive lymphs elevated at 28.7. Monocytes 12.2, eosinophils 1.7, basophils 0.9. The total neutrophils was low at 0.75. INR is 1 and PTT is 32. Electrolytes show sodium 141, potassium 3.8, chloride 108, bicarbonate 28. BUN 6 with a creatinine of 1.0. Magnesium 2.5, which is mildly elevated. Liver functions were normal. Procalcitonin is less than 0.05. Flu test was positive for influenza A. Chest x-ray done today showed emphysema, but no acute change. There was hilar retraction noted superiorly. EKG showed sinus arrhythmia with a first-degree block. MS interval was 0.216. IMPRESSION: 1. Influenza A. 2. Chronic obstructive pulmonary disease exacerbation. 3. Bronchiectasis. 4. Silicosis. 5. Increased reactive lymphocytes. COMMENTS AND RECOMMENDATIONS: The patient is quite congested. He was started on Tamiflu. He has neb treatments ordered every 4 hours. The patient at the time of his last hospitalization had some mental status changes while hospitalized and after discharge. It was thought it might be related to steroids. He did receive 1 high dose of methylprednisolone in the ER of 125 mg. We may need to use steroids but should limit the dose if need be and for now, we will try to get him better without this. He states he was very similar to this when he was hospitalized in February 2018. Consideration could be given to doing a mono test in light of the high reactive lymph count. The patient reportedly has had bronchoscopies in the past which did not seem to help his symptoms and actually he had worsening of his breathing after one of the scopes. Thus would tend to be conservative with bronchoscopy unless no options. Thank you for asking me to assist in his care.
[2018-07-20] MEDS: ALBUT/IPRATROP 3MG/0.5MG NEB 3 ML VIAL NEB SCH ×5 (03:35→19:37)
[2018-07-20 08:10] LABS: BUN Creatinine Ratio 11.2 (10-20); Calcium 8.7 mg/dl (8.5-10.1); Creatinine Clr Calc Pharmacy 50.6 ml/min; Est GFR (African American) 67.4; Est GFR (Non-African American) 58.1
[2018-07-20 08:18] LABS: Hematocrit (blood only) 38.7 % (42-52); Hemoglobin 13.1 g/dL (14.0-18.0); Mean Corpuscular Hgb Conc 33.9 g/dL (32-36); Mean Corpuscular Volume 91.5 fL (80-100); Mean Platelet Volume 11.4 fL (7.4-10.4); Monocytes # (auto) 0.61 K/uL (0.11-0.59); Monocytes % (auto) 26.4 %; Neutrophils % (auto) 47.6 %; Platelet Count 118 K/uL (130-400); RDW Coefficient of Variation 13.4 % (11.5-14.5); RDW Standard Deviation 44.7 fL (36.4-46.3); Red Blood Count 4.23 M/uL (4.7-6.1); White Blood Count 2.31 K/uL (4.8-10.8)
[2018-07-20] MEDS: OSELTAMIVIR PHOSPHATE SUSP 30 MG/5 ML UDP PO SCH ×2 (08:30→20:11)
--- NOTE | 2018-07-20 08:56 | Family Medicine Progress Note ---
Date of Service July 20, 2018 Assessment & Plan (1) Flu: Patient continues to be afebrile, hemodynamically stable. Adequate oxygenation on 3L NC. Acute hypoxemic respiratory failure with Mild respiratory distress and hypoxia noted with ambulation. Influenza A positive -Continue telemetry monitoring -Tamiflu 75mg po BID -Tylenol as needed for fever/pain -Procal with wnl -Started on azithromycin given nonspecific anti-inflammatory effect and evidence demonstrating equivlence to daily 5 mg pred in COPD. Hopefully this will prevent the need for further treatment with pred. If he continue to decline clinically would consider trial of prednisone (2) COPD (chronic obstructive pulmonary disease): Patient with history of O2 dependent COPD. -Supplemental O2 as needed -DuoNebs q 4 hours -Albuterol q 2 hours PRN -Flutter valve and vibration vest -Pulmonary consult - patient is followed by Geovanni Nicolas -codie starting abx and monitor clinical status, if he continues to decline would consider trial of prednisone -Family reports some acute mental status changes with steroid use during last hospital stay. Possibly secondary to medication effects, delirium. Will avoid systemic steroids for now. Encourage non-pharmacologic delirium prevention strategies to include frequent orientation, minimizing interruptions in sleep, maintaining regular day/night schedule and ambulation when safe. (3) Hypertension: Blood pressure well controlled at present -Continue Amlodipine 5mg po daily -Continue to monitor (4) Dyslipidemia: Chronic -Continue Pravastatin daily F/E/N- Heplock. Encourage PO intake, low Na diet. Monitor electroltyes and replete as needed Ppx - Lovenox 30 Code - DNR/DNI per discussion with patient Dispo - Med-Tele (5) Constipation: Scheduled Miralax qam -change to prn when normal bowel function returns Supervising Physician Co-Signing Physician Notes ATTENDING NOTE I saw the patient with Dr. Mathews and confirmed tucker portions of the history and physical exam. I agree with the documentation in the resident note. Upon our examination, the patient is semireclined in bed; he is able to talk in full sentences and does not appear to be struggling in terms of his respirations; he feels as if he cannot clear mucus that is in his chest. EXAM Blood pressure 135/73, pulse 76. He has been afebrile since admission. Lungs with scattered rhonchi and very and expiratory wheezes. He has good air exchange in all oshea. IMPRESSION Influenza A in the setting of COPD PLAN Continue Tamiflu Supplemental oxygen Chest physical therapy He apparently had an adverse reaction to prednisone; switch doxycycline to azithromycin as there may be a theoretical anti-inflammatory effect similar to that of prednisone. Subjective Pt doing well this morning. Complaining of not being able to move secretions from his lungs. Has an audible breath sounds. Syx are improving with the exceptions of sob. Pt also endorses constipation. Pt is voiding appropriately and eating appropriately Physical Exam Vital Signs (Past 24 Hours): Last Vital Signs Temp 36.5 C 07/20/18 07:12 Pulse 92 H 07/20/18 07:25 Resp 18 07/20/18 07:25 BP 151/89 H 07/20/18 07:12 Pulse Ox 98 07/20/18 07:25 Constitutional: WD/WN, vitals as above Eyes: normal visual oshea by confrontation Neck: trachea midline, no thyromegaly normal visual inspection Respiratory: + labored breathing, able to speak in complete sentences, + audible wheezes and symmetric chest movement Auscultation: + rhonchi and + wheezes Cardiovascular: RRR, no murmur, no edema Gastrointestinal (Abdomen): normal bowel sounds, soft, nontender, no hepatosplenomegaly Skin: no rashes, warm and dry Results & Data Laboratory Results 07/20/18 07/20/18 07/20/18 Range/Units 08:20 08:06 07:04 WBC 2.31 L RBC 4.23 L Hgb 13.1 L Hct 38.7 L MCV 91.5 MCH 31.0 MCHC 33.9 RDW Std Deviation 44.7 RDW Coeff of Iesha 13.4 Plt Count 118 L MPV 11.4 H Immature Gran % (Auto) 0.0 Neut % (Auto) 47.6 Lymph % (Auto) 26.0 [place] % (Auto) 26.4 Eos % (Auto) 0.0 Baso % (Auto) 0.0 Immature Gran # (Auto) 0.00 Neut # (Auto) 1.10 L Lymph # (Auto) 0.60 L [place] # (Auto) 0.61 H Eos # (Auto) 0.00 Baso # (Auto) 0.00 Absolute Nucleated RBC Nucleated RBC % (auto) Neutrophils % (Manual) Band Neutrophils % Lymphocytes % (Manual) Prolymphocyte % Reactive Lymphs % (Man) Monocytes % (Manual) Eosinophils % (Manual) Basophils % (Manual) Metamyelocytes % (Man) Myelocytes % (Man) Promyelocytes % (Man) Blast Cells % (Manual) Plasma Cell % (Manual) Other Cells % Nucleated RBC % Neutrophils # (Manual) Band Neutrophils # Total Absolute Neuts Lymphocytes # (Manual) Prolymphocyte # Reactive Lymphs # Total Abs Lymphocytes Monocytes # (Manual) Eosinophils # (Manual) Basophils # (Manual) Metamyelocytes # (Man) Myelocytes # (Manual) Promyelocytes # (Man) Blast Cells # (Man) Plasma Cell # (Manual) Other Cells # Nucleated RBCs # (Man) Hypersegmented Neuts Hyposegmented Neuts Hypogranular Neuts Large Granular Lymphs # Lrg Granular Lymphs Hairy Cells Smudge Cells Toxic Granulation Toxic Vacuolation Dohle Bodies Aurelio Rods Platelet Estimate Hypogranular Platelets Clumped Platelets Giant Platelets Platelet Satelliting RBC Morphology Polychromasia Hypochromasia Poikilocytosis Basophilic Stippling Anisocytosis Microcytosis Macrocytosis Spherocytes Pappenheimer Bodies Sickle Cells Target Cells Tear Drop Cells Ovalocytes Stomatocytes [place] Bodies Echinocytes Acanthocytes (Spur) Rouleaux RBC Agglutinates Schistocytes RBC Morph Comment Sezary Cell PT (9.0-12.0) Seconds INR (0.9-1.1) APTT (21.0-31.0) Seconds PTT Ratio Sodium 138 (136-145) mmol/L Potassium 3.9 (3.5-5.1) mmol/L Chloride 107 (98-107) mmol/L Carbon Dioxide 26 (21-32) mmol/L Anion Gap 5.0 (3-11) BUN 13 D (7-18) mg/dl Creatinine 1.13 (0.6-1.4) mg/dl Est Cr Clr Drug Dosing 50.6 ml/min Est GFR ( Amer) 67.4 Est GFR (Non-Af Amer) 58.1 BUN/Creatinine Ratio 11.2 (10-20) Glucose 122 H (70-99) mg/dl Calcium 8.7 (8.5-10.1) mg/dl Phosphorus (2.5-4.9) mg/dl Magnesium (1.8-2.4) mg/dl Procalcitonin (0-0.5) ng/ml 07/20/18 07/19/18 07/19/18 Range/Units 07:04 11:45 11:45 WBC Cancelled RBC Cancelled Hgb Cancelled Hct Cancelled MCV Cancelled MCH Cancelled MCHC Cancelled RDW Std Deviation Cancelled RDW Coeff of Iesha Cancelled Plt Count Cancelled MPV Cancelled Immature Gran % (Auto) Cancelled Neut % (Auto) Cancelled Lymph % (Auto) Cancelled [place] % (Auto) Cancelled Eos % (Auto) Cancelled Baso % (Auto) Cancelled Immature Gran # (Auto) Cancelled Neut # (Auto) Cancelled Lymph # (Auto) Cancelled [place] # (Auto) Cancelled Eos # (Auto) Cancelled Baso # (Auto) Cancelled Absolute Nucleated RBC Cancelled Nucleated RBC % (auto) Cancelled Neutrophils % (Manual) Cancelled Band Neutrophils % Cancelled Lymphocytes % (Manual) Cancelled Prolymphocyte % Cancelled Reactive Lymphs % (Man) Cancelled Monocytes % (Manual) Cancelled Eosinophils % (Manual) Cancelled Basophils % (Manual) Cancelled Metamyelocytes % (Man) Cancelled Myelocytes % (Man) Cancelled Promyelocytes % (Man) Cancelled Blast Cells % (Manual) Cancelled Plasma Cell % (Manual) Cancelled Other Cells % Cancelled Nucleated RBC % Cancelled Neutrophils # (Manual) Cancelled Band Neutrophils # Cancelled Total Absolute Neuts Cancelled Lymphocytes # (Manual) Cancelled Prolymphocyte # Cancelled Reactive Lymphs # Cancelled Total Abs Lymphocytes Cancelled Monocytes # (Manual) Cancelled Eosinophils # (Manual) Cancelled Basophils # (Manual) Cancelled Metamyelocytes # (Man) Cancelled Myelocytes # (Manual) Cancelled Promyelocytes # (Man) Cancelled Blast Cells # (Man) Cancelled Plasma Cell # (Manual) Cancelled Other Cells # Cancelled Nucleated RBCs # (Man) Cancelled Hypersegmented Neuts Cancelled Hyposegmented Neuts Cancelled Hypogranular Neuts Cancelled Large Granular Lymphs Cancelled # Lrg Granular Lymphs Cancelled Hairy Cells Cancelled Smudge Cells Cancelled Toxic Granulation Cancelled Toxic Vacuolation Cancelled Dohle Bodies Cancelled Aurelio Rods Cancelled Platelet Estimate Cancelled Hypogranular Platelets Cancelled Clumped Platelets Cancelled Giant Platelets Cancelled Platelet Satelliting Cancelled RBC Morphology Cancelled Polychromasia Cancelled Hypochromasia Cancelled Poikilocytosis Cancelled Basophilic Stippling Cancelled Anisocytosis Cancelled Microcytosis Cancelled Macrocytosis Cancelled Spherocytes Cancelled Pappenheimer Bodies Cancelled Sickle Cells Cancelled Target Cells Cancelled Tear Drop Cells Cancelled Ovalocytes Cancelled Stomatocytes Cancelled [place] Bodies Cancelled Echinocytes Cancelled Acanthocytes (Spur) Cancelled Rouleaux Cancelled RBC Agglutinates Cancelled Schistocytes Cancelled RBC Morph Comment Cancelled Sezary Cell Cancelled PT 10.2 (9.0-12.0) Seconds INR 1.0 (0.9-1.1) APTT 32.0 H (21.0-31.0) Seconds PTT Ratio 1.2 Sodium (136-145) mmol/L Potassium (3.5-5.1) mmol/L Chloride (98-107) mmol/L Carbon Dioxide (21-32) mmol/L Anion Gap (3-11) BUN (7-18) mg/dl Creatinine (0.6-1.4) mg/dl Est Cr Clr Drug Dosing ml/min Est GFR ( Amer) Est GFR (Non-Af Amer) BUN/Creatinine Ratio (10-20) Glucose (70-99) mg/dl Calcium (8.5-10.1) mg/dl Phosphorus (2.5-4.9) mg/dl Magnesium (1.8-2.4) mg/dl Procalcitonin < 0.05 (0-0.5) ng/ml 07/19/18 Range/Units 11:45 WBC RBC Hgb Hct MCV MCH MCHC RDW Std Deviation RDW Coeff of Iesha Plt Count MPV Immature Gran % (Auto) Neut % (Auto) Lymph % (Auto) [place] % (Auto) Eos % (Auto) Baso % (Auto) Immature Gran # (Auto) Neut # (Auto) Lymph # (Auto) [place] # (Auto) Eos # (Auto) Baso # (Auto) Absolute Nucleated RBC Nucleated RBC % (auto) Neutrophils % (Manual) Band Neutrophils % Lymphocytes % (Manual) Prolymphocyte % Reactive Lymphs % (Man) Monocytes % (Manual) Eosinophils % (Manual) Basophils % (Manual) Metamyelocytes % (Man) Myelocytes % (Man) Promyelocytes % (Man) Blast Cells % (Manual) Plasma Cell % (Manual) Other Cells % Nucleated RBC % Neutrophils # (Manual) Band Neutrophils # Total Absolute Neuts Lymphocytes # (Manual) Prolymphocyte # Reactive Lymphs # Total Abs Lymphocytes Monocytes # (Manual) Eosinophils # (Manual) Basophils # (Manual) Metamyelocytes # (Man) Myelocytes # (Manual) Promyelocytes # (Man) Blast Cells # (Man) Plasma Cell # (Manual) Other Cells # Nucleated RBCs # (Man) Hypersegmented Neuts Hyposegmented Neuts Hypogranular Neuts Large Granular Lymphs # Lrg Granular Lymphs Hairy Cells Smudge Cells Toxic Granulation Toxic Vacuolation Dohle Bodies Aurelio Rods Platelet Estimate Hypogranular Platelets Clumped Platelets Giant Platelets Platelet Satelliting RBC Morphology Polychromasia Hypochromasia Poikilocytosis Basophilic Stippling Anisocytosis Microcytosis Macrocytosis Spherocytes Pappenheimer Bodies Sickle Cells Target Cells Tear Drop Cells Ovalocytes Stomatocytes [place] Bodies Echinocytes Acanthocytes (Spur) Rouleaux RBC Agglutinates Schistocytes RBC Morph Comment Sezary Cell PT (9.0-12.0) Seconds INR (0.9-1.1) APTT (21.0-31.0) Seconds PTT Ratio Sodium (136-145) mmol/L Potassium (3.5-5.1) mmol/L Chloride (98-107) mmol/L Carbon Dioxide (21-32) mmol/L Anion Gap (3-11) BUN (7-18) mg/dl Creatinine (0.6-1.4) mg/dl Est Cr Clr Drug Dosing ml/min Est GFR ( Amer) Est GFR (Non-Af Amer) BUN/Creatinine Ratio (10-20) Glucose (70-99) mg/dl Calcium (8.5-10.1) mg/dl Phosphorus 3.2 (2.5-4.9) mg/dl Magnesium 2.5 H (1.8-2.4) mg/dl Procalcitonin (0-0.5) ng/ml Medications Administered Current Inpatient Medications Acetaminophen (Tylenol) 650 mg PO Q4H PRN PRN Reason: pain/fever Stop: 08/18/18 16:31 Last Admin: 07/19/18 22:06 Dose: 650 mg Documented by: Albuterol (Duoneb) 3 ml NEB Q4R [facility] Stop: 08/18/18 15:59 Last Admin: 07/20/18 11:25 Dose: 3 ml Documented by: Albuterol (Ventolin 0.5% 2.5mg/0.5ml) 2.5 mg NEB Q2H PRN PRN Reason: SOB/Wheeze Stop: 08/18/18 16:31 Amlodipine Besylate (Norvasc) 5 mg PO HS [facility] Stop: 08/18/18 20:59 Last Admin: 07/19/18 20:14 Dose: 5 mg Documented by: Azithromycin (Zithromax) 250 mg PO QAM [facility] Stop: 07/27/18 13:44 Enoxaparin Sodium (Lovenox) 30 mg SQ Q24H [facility] Stop: 08/18/18 18:59 Last Admin: 07/19/18 20:13 Dose: 30 mg Documented by: Oseltamivir Phosphate (Tamiflu) 30 mg PO BID [facility]; Protocol Stop: 07/23/18 21:01 Last Admin: 07/20/18 08:30 Dose: 30 mg Documented by: Pantoprazole Sodium (Protonix) 40 mg PO DAILY PRN PRN Reason: Gi Upset Stop: 08/19/18 16:31 Last Admin: 07/19/18 22:06 Dose: 40 mg Documented by: Polyethylene Glycol (Miralax Powder Packet) 17 gm PO DAILY [facility] Stop: 08/19/18 13:44 Pravastatin Sodium (Pravachol) 20 mg PO HS [facility] Stop: 08/18/18 20:59 Last Admin: 07/19/18 20:14 Dose: 20 mg Documented by: Resident Activity Tracking Resident Involvement: Resident Care Provided Care Provided: Adult Hospital Medicine (1) COPD (chronic obstructive pulmonary disease) COPD type: unspecified COPD Qualified Code(s): J44.9 - Chronic obstructive p ulmonary disease, unspecified (2) Hypertension Hypertension type: essential hypertension Qualified Code(s): I10 - Essential (primary) hypertension
--- NOTE | 2018-07-20 11:14 | Progress Note ---
DATE: 07/20/2018 PULMONARY PROGRESS NOTE TIME: 9:50 a.m. SUBJECTIVE: The patient still feels short of breath with any exertion. At rest, he is reasonably comfortable. He is very anxious about the fact he has not coughed any phlegm out. He states he has never gone this long without bringing up mucus. He is almost a bit panicky thinking about it. Nursing reports that he had a good night with no significant problems. OBJECTIVE: GENERAL: The patient was comfortable at rest. VITAL SIGNS: Temperature is 36.5. There has been no fever. CARDIAC: Heart rate 92 per minute. Rhythm is regular. Blood pressure 151/89. LUNGS: The patient has less rhonchi today than yesterday. He is still having some wheezing. Respiratory rate 18 and not labored. Saturation 98% on 3 liters nasal cannula. EXTREMITIES: Showed no cyanosis, clubbing or edema. LABORATORY DATA: White count today is 2.31. This is slightly increased from yesterday. Hemoglobin 13.1, platelets 118,000. Electrolytes show sodium 138, potassium 3.9, chloride 107, bicarbonate 26. BUN 13, creatinine 1.13. IMPRESSION: 1. Acute influenza A. 2. Chronic obstructive pulmonary disease exacerbation. 3. Bronchiectasis. 4. Silicosis. COMMENTS AND RECOMMENDATIONS: We will order incentive spirometry for the patient. Would continue with the q.4 hours DuoNeb and with the Tamiflu. We will try to avoid steroids if possible, but if his status worsens, we will just need to do it and hope he does not have the side effects that occurred during his last hospital stay. He was given doxycycline in the ER. I believe I would resume doxycycline in the event he could have a coexistent bacterial infection. Although the flu test is positive, his symptoms are not strongly suggestive for flu.
[2018-07-20] MEDS ORDERED: AZITHROMYCIN 250 MG TAB PO SCH (14:00)
[2018-07-20] MEDS: POLYETHYLENE (MIRALAX) 17 GM PACK PO SCH (14:12)
[2018-07-20] MEDS: ENOXAPARIN INJ 30 MG/0.3 ML SYR SQ SCH (20:01)
[2018-07-20] MEDS: PRAVASTATIN SOD 20 MG TAB PO SCH (20:02)
[2018-07-20] MEDS: AMLODIPINE BESYLATE 5 MG TAB PO SCH (20:02)
[2018-07-21] MEDS: ALBUT/IPRATROP 3MG/0.5MG NEB 3 ML VIAL NEB SCH ×8 (00:02→23:22)
[2018-07-21] MEDS ORDERED: MoRPHine SULFATE 2 MG/ML CARP IV STA ×2 (00:32→05:12)
[2018-07-21] MEDS ORDERED: FUROSEMIDE 20 MG in SYRINGE 0 ML IV ONE (05:11)
[2018-07-21] MEDS ORDERED: FUROSEMIDE 40 MG/4 ML VIAL IV ONE (05:15)
[2018-07-21] MEDS ORDERED: MoRPHine SULFATE 2 MG/ML CARP ONE (05:16)
--- NOTE | 2018-07-21 07:40 | Family Medicine Progress Note ---
Date of Service July 21, 2018 Assessment & Plan (1) Flu: Patient continues to be afebrile, hemodynamically stable. Adequate oxygenation on 3L NC. Acute hypoxemic respiratory failure with Mild respiratory distress and hypoxia noted with ambulation. Influenza A positive -Improving clinically increased rhonci on respiratory exam likely demonstrate secreations mobilizing vs increased volume status would avoid lasix unless necessary -CXR negative for pulmonary edema -> No Lasix -Continue telemetry monitoring -Tamiflu 75mg po BID -Tylenol as needed for fever/pain -Procal with wnl -Started on azithromycin day 2 given nonspecific anti-inflammatory effect and evidence demonstrating equivlence to daily 5 mg pred in COPD. Hopefully this will prevent the need for further treatment with pred. If he continue to decline clinically would consider trial of prednisone (2) COPD (chronic obstructive pulmonary disease): Patient with history of O2 dependent COPD. -Supplemental O2 as needed -DuoNebs q 4 hours -Albuterol q 2 hours PRN -Flutter valve and vibration vest -Pulmonary consult - patient is followed by Geovanni Nicolas -codie starting abx and monitor clinical status, if he continues to decline would consider trial of prednisone -Family reports some acute mental status changes with steroid use during last hospital stay. Possibly secondary to medication effects, delirium. Will avoid systemic steroids for now. Encourage non-pharmacologic delirium prevention strategies to include frequent orientation, minimizing interruptions in sleep, maintaining regular day/night schedule and ambulation when safe. -If breathing worsens would use IV solumedrol or better yet IM depomedrol as psychosis risk has been shown to be less compared to po (3) Hypertension: Blood pressure well controlled at present -Continue Amlodipine 5mg po daily -Continue to monitor (4) Dyslipidemia: Chronic -Continue Pravastatin daily F/E/N- Heplock. Encourage PO intake, low Na diet. Monitor electroltyes and replete as needed Ppx - Lovenox 30 Code - DNR/DNI per discussion with patient Dispo - Med-Tele (5) Constipation: Scheduled Miralax qam -change to prn when normal bowel function returns Supervising Physician Co-Signing Physician Notes ATTENDING NOTE I saw the patient with Dr. Mathews and confirmed tucker portions of the history and physical exam. I agree with the documentation in the resident note. Overall he is thinks that he is somewhat better today compared to yesterday. He is coughing less but he is frustrated because his cough is nonproductive. He can talk in full sentences without stopping or obvious dyspnea; reports increased dyspnea with activity of though he is in bed for entirety of our exam EXAM Vital signs as noted. He is afebrile. Lungs with rhonchi, increased and diffuse compared to yesterday. IMPRESSION Influenza A in the setting of COPD and occupational lung disease (silicosis) PLAN Continue Tamiflu Continue Zithromax Supplemental oxygen Chest physical therapy I met sure if the lung exam today represents improvement (better air exchange and mobilization of secretions) or a worsening of his infection. Based on his overall feeling, suspect the former. Check chest x-ray this afternoon. We have been holding off on steroids given the patient's adverse reactions previously (agitation) but may need to reconsider should he not improve or worsen. Subjective pt sitting up in bed this am with his daughter at the bedside. Pt had a difficult night, he was unable to sleep 2/2 to breathing difficulties. He feels as if he has to cough up phelgm but can't get it out and was using his flutter valve consistently throughout the night. Some subjective improvement and he is starting to move some secretions. Tolerating his diet, voiding, stooling, not sleeping well. Of note during a previous admission he became extremely agitated presumed 2/2 to prednisone. Based on his current behavior and presentation I am more inclined to think this was a severe episode of sundowning or "hospital psychosis" as opposed to medication adverse event. Physical Exam Vital Signs (Past 24 Hours): Last Vital Signs Temp 36.5 C 07/21/18 04:32 Pulse 84 07/21/18 07:10 Resp 20 07/21/18 07:10 BP 146/85 H 07/21/18 04:32 Pulse Ox 99 07/21/18 07:10 Constitutional: WD/WN, vitals as above Eyes: normal visual oshea by confrontation Neck: trachea midline, no thyromegaly normal visual inspection Respiratory: + labored breathing, able to speak in complete sentences, + audible wheezes and symmetric chest movement Auscultation: + rhonchi (Significant Rhonci vs Crackles on cardiac exam) and + wheezes Cardiovascular: RRR, no murmur, no edema Gastrointestinal (Abdomen): normal bowel sounds, soft, nontender, no hepatosplenomegaly Skin: no rashes, warm and dry Resident Activity Tracking Resident Involvement: Resident Care Provided Care Provided: Adult Hospital Medicine (1) COPD (chronic obstructive pulmonary disease) COPD type: unspecified COPD Qualified Code(s): J44.9 - Chronic obstructive pulmonary disease, unspecified (2) Hypertension Hypertension type: essential hypertension Qualified Code(s): I10 - Essential (primary) hypertension
[2018-07-21] MEDS: POLYETHYLENE (MIRALAX) 17 GM PACK PO SCH (07:53)
[2018-07-21] MEDS: OSELTAMIVIR PHOSPHATE SUSP 30 MG/5 ML UDP PO SCH ×2 (07:54→20:25)
[2018-07-21] MEDS: AZITHROMYCIN 250 MG TAB PO SCH (07:54)
--- NOTE | 2018-07-21 15:46 | Progress Note ---
DATE: 07/21/2018 PULMONARY PROGRESS NOTE TIME: 2:35 p.m. SUBJECTIVE: The patient remains short of breath. He is coughing some with just a small amount of mucus. His mucus feels much looser to him, however. He is winded with any exertion at all. His thinks he may be slightly better today. OBJECTIVE: GENERAL: The patient is cooperative, alert and oriented. He is in no distress. VITAL SIGNS: Temperature is 36.6. He has had no fevers. HEART: Heart rate was 96 per minute. Rhythm regular. Blood pressure 138/77. LUNGS: Auscultation of the lung oshea reveals diffuse rhonchi. They sound more like upper airway rhonchi today. There is a definite increase compared with yesterday. Respiratory rate 22. Saturation was 97% on 3 liters at the time of my exam. EXTREMITIES: Showed no cyanosis, clubbing or edema. It appears the patient did not have any lab studies today. IMPRESSION: 1. Acute influenza A. 2. Chronic obstructive pulmonary disease with exacerbation. 3. Bronchiectasis. 4. Silicosis. COMMENTS AND RECOMMENDATIONS: The patient has a definite increase in noisy respirations. I am not sure if this reflects improvement or worsening. He is not bringing much up. This is despite the fact he is using the vest and the flutter valve and getting his neb treatments. For now, would continue to try not to give prednisone in light of his prior problems. If, however, his breathing would become labored, I would have no problem giving him some methylprednisolone. Otherwise, would continue current treatment. I will be off pulmonary service tomorrow, but we will have them follow up with the patient.
--- NOTE | 2018-07-21 16:46 | XRay Report ---
XR chest 1V portable CLINICAL HISTORY: Crackles. COMPARISON STUDY: Chest CT March 17, 2018. Chest radiograph July 19, 2018. FINDINGS: Emphysema is again noted. By apical reticulonodular interstitial thickening with scarring i s unchanged. There is no pneumothorax or pleural effusion. No superimposed consolidation is identifie d. The appearance of the chest is unchanged. Pleural thickening, most evident within the right lung a pex, is unchanged. IMPRESSION: 1. No change in appearance of the chest with stable biapical reticulonodular interstitial thickening, scarring and fibrosis. 2. Emphysema. No superimposed consolidation. Electronically signed by: Jose Ralph M.D. 07/21/2018 4:44 PM
[2018-07-21] MEDS: AMLODIPINE BESYLATE 5 MG TAB PO SCH (20:26)
[2018-07-21] MEDS: ENOXAPARIN INJ 30 MG/0.3 ML SYR SQ SCH (20:26)
[2018-07-21] MEDS: PRAVASTATIN SOD 20 MG TAB PO SCH (20:27)
[2018-07-21] MEDS: DOCUSATE SODIUM 100 MG CAP PO SCH (20:34)
[2018-07-22] MEDS: ALBUT/IPRATROP 3MG/0.5MG NEB 3 ML VIAL NEB SCH ×6 (03:40→23:15)
[2018-07-22 07:33] LABS: Basophils # (auto) 0.01 K/uL (0-0.2); Basophils % (auto) 0.3 %; Eosinophils # (auto) 0.06 K/uL (0-0.5); Eosinophils % (auto) 1.7 %; Hematocrit (blood only) 41.6 % (42-52); Lymphocytes # (auto) 1.66 K/uL (1.2-3.4); Mean Corpuscular Hemoglobin 30.7 pg (25-34); Mean Corpuscular Hgb Conc 33.7 g/dL (32-36); Mean Corpuscular Volume 91.2 fL (80-100); Mean Platelet Volume 11.5 fL (7.4-10.4); Monocytes # (auto) 0.66 K/uL (0.11-0.59); Monocytes % (auto) 18.7 %; Neutrophils # (auto) 1.14 K/uL (1.4-6.5); Neutrophils % (auto) 32.3 %; Platelet Count 124 K/uL (130-400); RDW Coefficient of Variation 13.3 % (11.5-14.5); RDW Standard Deviation 44.3 fL (36.4-46.3); Red Blood Count 4.56 M/uL (4.7-6.1); White Blood Count 3.53 K/uL (4.8-10.8)
[2018-07-22 08:10] LABS: BUN Creatinine Ratio 13.7 (10-20); Calcium 8.5 mg/dl (8.5-10.1); Creatinine Clr Calc Pharmacy 57.7 ml/min; Est GFR (Non-African American) 68.2; Potassium 3.9 mmol/L (3.5-5.1)
[2018-07-22] MEDS: DOCUSATE SODIUM 100 MG CAP PO SCH ×2 (08:23→21:09)
[2018-07-22] MEDS: POLYETHYLENE (MIRALAX) 17 GM PACK PO SCH (08:23)
[2018-07-22] MEDS: AZITHROMYCIN 250 MG TAB PO SCH (08:24)
[2018-07-22] MEDS: OSELTAMIVIR PHOSPHATE SUSP 30 MG/5 ML UDP PO SCH ×2 (08:28→21:14)
[2018-07-22] MEDS ORDERED: SODIUM CHLORIDE 0.65% NA SOLN 45 ML (OCEAN) ONE (15:54)
--- NOTE | 2018-07-22 17:21 | Pulmonology Progress Note ---
Date of Service July 22, 2018 Assessment & Plan (1) COPD exacerbation: COPD exacerbation due to influenza still wheezing and shortness of breath possible had prior episode of confusion from steroids in the past would like to try steroids today and see if his respiratory symptoms improve albuterol/ipratropium will start methylpredisolone 40daily. watch for any change in mental status oseltamivir for influenza Subjective still wheezing still coughing but feels like mucus is stuck Physical Exam Vital Signs (Past 24 Hours): Last Vital Signs Temp 36.4 C L 07/22/18 15:00 Pulse 94 H 07/22/18 15:24 Resp 16 07/22/18 15:24 BP 126/76 07/22/18 15:00 Pulse Ox 98 07/22/18 15:24 Physical Exam: Constitutional: Comfortable NAD HEENT: normocephalic atraumatic. MMM. CV: RRR nl s1,s2 no murmurs rubs or gallops Lungs: wheezing bilaterally and upper airway sounds. no accessory muscle use Abd: soft nontender nondistended. normal bowel sounds Ext: no edema. no cyanosis, no edema Skin: warm dry Neuro: alert and oriented. moving all extremities Psych: normal mood and affect
[2018-07-22] MEDS: methylPREDNISolone 40 MG in SYRINGE 0 ML IV SCH (18:05)
--- NOTE | 2018-07-22 18:40 | Family Medicine Progress Note ---
Date of Service July 22, 2018 Assessment & Plan (1) Flu: ON tamiflu day 4/ Most likely source of his COPD exacerbation Appears to be improving, patient is afebrile and O2 demand has decreased (2) COPD (chronic obstructive pulmonary disease): Patient with history of O2 dependent COPD. -Supplemental O2 as needed -DuoNebs q 4 hours -Albuterol q 2 hours PRN -Flutter valve and vibration vest - Patient started on methylprednisone to try and improve bleeding will continue to monitor. (3) Hypertension: Blood pressure well controlled at present -Amlodipine 5mg po daily -Continue to monitor (4) Dyslipidemia: Chronic -Continue Pravastatin daily F/E/N- Heplock. Encourage PO intake, low Na diet. Monitor electrolytes and replete as needed Ppx - Lovenox 30 Code - DNR/DNI per discussion with patient Dispo - Med-Tele (5) Constipation: Scheduled Miralax qam -change to prn when normal bowel function returns Supervising Physician Co-Signing Physician Notes I personally examined the patient and verified all tucker points of history and exam, discussed case, and agree with decision making with Dr Decker. breathing feels about the same, ongoing mucous. appreciate pulmonary input vitals noted nad but fatigued appearing. diffuse scattered rhonchi diminished air entry good effort. COPD/chronic respiratory failure w COPD exacerbation due to flu A -seems stable. -appreciate pulmonary input -continue med management Subjective Patient sitting up reading the paper, he is conversing well. He tells me that he was doing much better yesterday, but last night felt chest tightness and that he stopped coughing up large volumes of phlegm. He very closely ties the volume of phlegm he coughs up to his wellness overall. Constitutional: no fever, no chills, no fatigue and no weakness Respiratory: + cough, + change in sputum (Less Sputum) and + dyspnea; no wheezing Cardiovascular: no chest pain, no chest pain at rest, no radiating jaw, neck or arm pain, no palpitations and no syncope Gastrointestinal: no abdominal pain, no nausea and no vomiting Physical Exam Vital Signs (Past 24 Hours): Last Vital Signs Temp 36.4 C L 07/22/18 15:00 Pulse 94 H 07/22/18 15:24 Resp 16 07/22/18 15:24 BP 126/76 07/22/18 15:00 Pulse Ox 98 07/22/18 15:24 Constitutional: WD/WN, vitals as above Neck: trachea midline, no thyromegaly normal visual inspection Respiratory: normal respiratory effort, + cough, able to speak in complete sentences, + audible wheezes and symmetric chest movement; does not use accessory muscles Auscultation: + rhonchi (Diffuse Rhonci globally) Cardiovascular: Rate/Rhythm: regular rate and regular rhythm Extremities: no calf tenderness and no edema Gastrointestinal (Abdomen): normal bowel sounds, soft, nontender, no hepatosplenomegaly Skin: no rashes, warm and dry Resident Activity Tracking Resident Involvement: Resident Care Provided Care Provided: Adult Hospital Medicine (1) COPD (chronic obstructive pulmonary disease) COPD type: unspecified COPD Qualified Code(s): J44.9 - Chronic obstructive pulmonary disease, unspecified (2) Hypertension Hypertension type: essential hypertension Qualified Code(s): I10 - Essential (primary) hypertension
[2018-07-22] MEDS: ENOXAPARIN INJ 30 MG/0.3 ML SYR SQ SCH (19:08)
[2018-07-22] MEDS: PRAVASTATIN SOD 20 MG TAB PO SCH (21:09)
[2018-07-22] MEDS: AMLODIPINE BESYLATE 5 MG TAB PO SCH (21:10)
[2018-07-23] MEDS: ALBUT/IPRATROP 3MG/0.5MG NEB 3 ML VIAL NEB SCH ×6 (03:16→23:19)
[2018-07-23] MEDS: AZITHROMYCIN 250 MG TAB PO SCH (07:41)
[2018-07-23] MEDS: DOCUSATE SODIUM 100 MG CAP PO SCH ×2 (07:41→21:33)
[2018-07-23] MEDS: POLYETHYLENE (MIRALAX) 17 GM PACK PO SCH (07:41)
[2018-07-23] MEDS: OSELTAMIVIR PHOSPHATE SUSP 30 MG/5 ML UDP PO SCH ×2 (07:43→21:33)
--- NOTE | 2018-07-23 10:08 | Pulmonology Progress Note ---
Date of Service July 23, 2018 Assessment & Plan (1) COPD exacerbation: COPD exacerbation due to influenza still wheezing but improved still with significant dyspnea on exertion possible had prior episode of confusion from steroids in the past albuterol/ipratropium ok to take his symbicort contineu methylpredisolone 40daily. no mental status changes. will consider increasing dose if does not continue to improve oseltamivir for influenza Subjective slightly improved still wheezing very short of breath after walking to bathroom Physical Exam Vital Signs (Past 24 Hours): Last Vital Signs Temp 36.4 C L 07/23/18 07:55 Pulse 85 07/23/18 07:55 Resp 18 07/23/18 07:55 BP 138/83 07/23/18 07:55 Pulse Ox 97 07/23/18 07:55 Physical Exam: Constitutional: Comfortable NAD HEENT: normocephalic atraumatic. MMM. CV: RRR nl s1,s2 no murmurs rubs or gallops Lungs: scatterd wheezing bilaterally improved from yesterday. no accessory muscle use. tachypnea Abd: soft nontender nondistended. Ext: no edema. no cyanosis, no edema Skin: warm dry Neuro: alert and oriented. moving all extremities Psych: normal mood and affect
--- NOTE | 2018-07-23 16:55 | Family Medicine Progress Note ---
Date of Service July 23, 2018 Assessment & Plan (1) Flu: 88 year old man with COPD exacerbated by influenza A infection. Finishing last day of tamiflu dose 01/30 Most likely source of his COPD exacerbation Appears to be improving, patient is afebrile and O2 demand has decreased (2) COPD (chronic obstructive pulmonary disease): Patient with history of O2 dependent COPD. -Moving air incrementally better than yesterday. -Supplemental O2 as needed -DuoNebs q 4 hours -Albuterol q 2 hours PRN -Flutter valve and vibration vest -Patient appears to be responding well to methylpred (3) Hypertension: Blood pressure well controlled at present -Amlodipine 5mg po daily -Continue to monitor (4) Dyslipidemia: Chronic -Continue Pravastatin daily F/E/N- Heplock. Encourage PO intake, low Na diet. Monitor electrolytes and replete as needed Ppx - Lovenox 30 Code - DNR/DNI per discussion with patient Dispo - Med-Tele (5) Constipation: Scheduled Miralax qam -change to prn when normal bowel function returns Supervising Physician Co-Signing Physician Notes I personally examined the patient and verified all tucker points of history and exam, discussed case, and agree with decision making with Dr Decker. breathing feels about the same, ongoing mucous. CHANCE. vitals noted nad and actually appears better. breathing unlabored no accessory muscles. COPD/chronic respiratory failure w COPD exacerbation due to flu A -seems improving. suspect his symptosm will simply take a long time to resolve. -appreciate pulmonary input -continue med management, add mucomyst nebs Subjective Patient sitting up in bed, concerned that he has not been able to improve more though he admits he feels a little bit better. He is still experiencing shortness of breath with en mild physical activity. Respiratory: + cough, + change in sputum (Less Sputum) and + dyspnea; no w heezing Physical Exam Vital Signs (Past 24 Hours): Last Vital Signs Temp 36.4 C L 07/23/18 16:12 Pulse 80 07/23/18 16:12 Resp 18 07/23/18 16:12 BP 164/84 H 07/23/18 16:12 Pulse Ox 98 07/23/18 16:12 Constitutional: WD/WN, vitals as above Eyes: normal visual oshea by confrontation Neck: trachea midline, no thyromegaly normal visual inspection Respiratory: normal respiratory effort, + cough, able to speak in complete sentences, + audible wheezes and symmetric chest movement; does not use accessory muscles Auscultation: + rhonchi (Diffuse Rhonci globally) Cardiovascular: RRR, no murmur, no edema Rate/Rhythm: regular rate and regular rhythm Extremities: no calf tenderness and no edema Gastrointestinal (Abdomen): normal bowel sounds, soft, nontender, no hepatosplenomegaly Skin: no rashes, warm and dry (1) COPD (chronic obstructive pulmonary disease) COPD type: unspecified COPD Qualified Code(s): J44.9 - Chronic obstructive pulmonary disease, unspecified (2) Hypertension Hypertension type: essential hypertension Qualified Code(s): I10 - Essential (primary) hypertension
[2018-07-23] MEDS: ENOXAPARIN INJ 30 MG/0.3 ML SYR SQ SCH (18:04)
[2018-07-23] MEDS: methylPREDNISolone 40 MG in SYRINGE 0 ML IV SCH (18:04)
[2018-07-23] MEDS: ALUMINUM/MAGNESIUM SUSP 30 ML UDC PO PRN (18:56)
[2018-07-23] MEDS ORDERED: ACETYLCYSTEINE 10% INHAL SOLN **DISPENSED FROM RESP. INH SCH (21:00)
[2018-07-23] MEDS: AMLODIPINE BESYLATE 5 MG TAB PO SCH (21:33)
[2018-07-23] MEDS: PRAVASTATIN SOD 20 MG TAB PO SCH (21:34)
[2018-07-24] MEDS: ALUMINUM/MAGNESIUM SUSP 30 ML UDC PO PRN (02:14)
[2018-07-24] MEDS: ALBUT/IPRATROP 3MG/0.5MG NEB 3 ML VIAL NEB SCH ×6 (04:12→23:05)
[2018-07-24] MEDS: ACETYLCYSTEINE 20% INHAL SOLN ***DISPENSED BY RESP. INH SCH ×3 (07:14→19:45)
[2018-07-24] MEDS ORDERED: CALCIUM CARBONATE 500 MG CHEWABLE TAB PO PRN (07:59)
[2018-07-24] MEDS: DOCUSATE SODIUM 100 MG CAP PO SCH ×2 (08:13→20:41)
[2018-07-24] MEDS: AZITHROMYCIN 250 MG TAB PO SCH (08:13)
[2018-07-24] MEDS: PANTOprazole 40 MG TAB PO PRN (08:13)
[2018-07-24] MEDS: POLYETHYLENE (MIRALAX) 17 GM PACK PO SCH (08:13)
--- NOTE | 2018-07-24 10:43 | Pulmonology Progress Note ---
Date of Service July 24, 2018 Assessment & Plan (1) COPD exacerbation: COPD exacerbation due to influenza slightly improved but still sob with speaking albuterol/ipratropium Symbicort continue methylprednisolone 40daily. no mental status changes. oseltamivir for influenza OOB as able Subjective improving sob Physical Exam Vital Signs (Past 24 Hours): Last Vital Signs Temp 36.3 C L 07/24/18 07:56 Pulse 100 H 07/24/18 07:56 Resp 24 07/24/18 07:56 BP 155/88 H 07/24/18 07:56 Pulse Ox 95 07/24/18 07:56 Physical Exam: Constitutional: Comfortable NAD HEENT: normocephalic atraumatic. MMM. CV: RRR nl s1,s2 no murmurs rubs or gallops Lungs:clear to auscultation bilaterally. no accessory muscle use. tachypnea when talking needs to stop after 4 or 5 breaths Abd: soft nontender nondistended. Ext: no edema. no cyanosis, no edema Skin: warm dry Neuro: alert and oriented. moving all extremities Psych: normal mood and affect
--- NOTE | 2018-07-24 12:43 | Family Medicine Progress Note ---
Date of Service July 24, 2018 Assessment & Plan (1) COPD exacerbation: 88 year old man with COPD exacerbated by influenza A infection. Influenza Finished course of tamiflu and azithromycin Flu likely exacerbated his baseline COPD. Appears to be improving, patient has remained afebrile and O2 demands at baseline though still complaining of not being back at baseline Explained timecourse of illness and that it may take time to return fully to baseline. COPD (chronic obstructive pulmonary disease): Patient with history of O2 dependent COPD. -Moving air incrementally better than yesterday. -Supplemental O2 as needed -DuoNebs q 4 hours -Albuterol q 2 hours PRN -Flutter valve and vibration vest -Patient appears to be responding well to methylpred Hypertension: Blood pressure well controlled at present -Amlodipine 5mg po daily -Continue to monitor Dyslipidemia: Chronic -Continue Pravastatin daily Constipation: Scheduled Miralax qam -change to prn when normal bowel function returns F/E/N- Heplock. Encourage PO intake, low Na diet. Monitor electrolytes and replete as needed Ppx - Lovenox 30 Code - DNR/DNI per discussion with patient Dispo - Med-Tele (2) Flu: (3) Hypertension: (4) SVT (supraventricular tachycardia): (5) Admitted to intensive care unit: (6) Former smoker: Supervising Physician Co-Signing Physician Notes I personally examined the patient and verified all tucker points of history and exam, discussed case, and agree with decision making with Dr Decker. Initially notes that her breathing feels better, than later notes that he is not bringing up as much sputum, he is worried about this, but after listening to his lungs and noting that overall they sound more clear I informed him that this is most likely because there is less mucus in there, but he continues to perseverate on not being able to bring it up. vitals noted nad and actually appears better. breathing unlabored no accessory muscles. Better air entry and while he still has scattered diffuse rhonchi and they are far less in intensity and volume. COPD/chronic respiratory failure w COPD exacerbation due to flu A -seems improving. suspect his symptoms will simply take a long time to resolve. Continue current care, hopefully home in the next day or so -appreciate pulmonary input Otherwise as above Subjective Patient awake and conversive in bed. He tells me he feels he is much less short of breath than yesterday. Able to walk about the room without getting short of breath. He still is very fixated on the volume of his sputum as the only measure of improvement, tried to explain how we are evaluating him and necessity to start anticholinergic therapy and proper use. He had one episode of heartburn overnight which responded well to tums. Constitutional: no fever and no chills Respiratory: + cough (productive), + chest congestion and + dyspnea on exertion (decreased); no pain on inspiration, no pain with cough and no wheezing Cardiovascular: no chest pain, no syncope, no edema and no calf pain Gastrointestinal: + heartburn; no abdominal pain, no nausea and no vomiting Physical Exam Vital Signs (Past 24 Hours): Last Vital Signs Temp 36.2 C L 07/24/18 11:56 Pulse 86 07/24/18 11:56 Resp 22 07/24/18 11:56 BP 112/65 07/24/18 11:56 Pulse Ox 98 07/24/18 11:56 Constitutional: WD/WN, vitals as above Respiratory: normal respiratory effort, + cough and able to speak in complete sentences; no respiratory distress Good air movement bilaterally, lung exam more clear than yesterday Cardiovascular: RRR, no murmur, no edema Gastrointestinal (Abdomen): Inspection/Auscultation: abdomen normal to inspection; abdomen not distended Percussion/Palpation: abdomen soft; abdomen nontender (1) Hypertension Hypertension type: essential hypertension Qualified Code(s): I10 - Essential (primary) hypertension
[2018-07-24] MEDS: methylPREDNISolone 40 MG in SYRINGE 0 ML IV SCH (17:23)
[2018-07-24] MEDS: ENOXAPARIN INJ 30 MG/0.3 ML SYR SQ SCH (18:27)
[2018-07-24] MEDS: PRAVASTATIN SOD 20 MG TAB PO SCH (20:40)
[2018-07-24] MEDS: AMLODIPINE BESYLATE 5 MG TAB PO SCH (20:41)
[2018-07-25] MEDS: ALBUT/IPRATROP 3MG/0.5MG NEB 3 ML VIAL NEB SCH ×3 (03:39→11:00)
[2018-07-25] MEDS: ACETYLCYSTEINE 20% INHAL SOLN ***DISPENSED BY RESP. INH SCH (07:21)
[2018-07-25] MEDS: AZITHROMYCIN 250 MG TAB PO SCH (09:13)
[2018-07-25] MEDS: DOCUSATE SODIUM 100 MG CAP PO SCH (09:13)
[2018-07-25] MEDS: POLYETHYLENE (MIRALAX) 17 GM PACK PO SCH (09:14)
--- NOTE | 2018-07-25 11:17 | Pulmonology Progress Note ---
Date of Service July 25, 2018 Assessment & Plan (1) COPD exacerbation: COPD exacerbation due to influenza continues to improve albuterol/ipratropium Symbicort continue methylprednisolone 40daily. complete 7 days of steroids oseltamivir for influenza OOB as much as able Subjective improving sob. less sob with exertion Physical Exam Vital Signs (Past 24 Hours): Last Vital Signs Temp 36.7 C 07/25/18 07:04 Pulse 118 H 07/25/18 11:01 Resp 24 07/25/18 11:01 BP 148/86 H 07/25/18 07:04 Pulse Ox 95 07/25/18 11:01 Physical Exam: Constitutional: Comfortable NAD HEENT: normocephalic atraumatic. MMM. CV: RRR nl s1,s2 no murmurs rubs or gallops Lungs:clear to auscultation bilaterally. no accessory muscle use. able to speak complete sentences without sob Abd: soft nontender nondistended. Ext: no edema. no cyanosis, no edema Skin: warm dry Neuro: alert and oriented. moving all extremities Psych: normal mood and affect
--- NOTE | 2018-07-25 22:10 | Discharge Summary ---
Date of Service July 25, 2018 Admission HPI Per Admitting Provider Mr. 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 Symptoms began the evening of 07/15 while patient was in [place] on a casino trip. His SOB progressed with severe worsening in the last two days. He becomes quite dyspneic with ambulating short distances. Also complaining of chills and body aches. One episode of nausea with no vomiting. No abdominal pain/diarrhea/constipation. He additionally denies CP/palpitations/orthopnea/edema. No history of DVT. He uses a nebulizer machine with Albuterol twice daily. He also uses a vibration vest as well. He increased his O2 at home to 4L. Patient travelled to [place] on Sunday and [place] on Sunday for a casino trip. In the ER he was slightly tachycardic to 102bpm, slighlty tachypnic at 89% on 3L NC. Patient with mild respiratory distress after ambulating to the restroom in his room. Pursed lip breathing and hypoxia which resolved with being in bed and still. ER Course: Doxycycline, Levalbuterol, Magnesium sulfate 1gm, Solumedrol 125mg Admission Exam Per Admitting Provider Temp 37 C 07/19/18 10:25 Pulse 102 H 07/19/18 13:00 Resp 24 07/19/18 13:00 BP 148/80 H 07/19/18 11:27 Pulse Ox 89 L 07/19/18 13:00 Physical Exam: General: elderly male resting comfortably, NAD, non-toxic in appearance, AA&O x 4 Skin: warm, dry, intact, no rashes or lesions HEENT: NC/AT, PERRL, EOMI, anicteric sclera, conjunctiva without injection, external ear normal to inspection and nontender, nares patent, moist mucus membranes, dentures in place, no oropharyngeal lesions, neck supple, trachea midline, no LAD, no thyromegaly, no JVD Heart: +S1/S2, regular with respiratory variation, no m/r/g Lungs: diminished breath sounds, equal air entry bilaterally, coarse BS bilaterally, mild degree of end-expiratory wheezing with prolonged expiratory phase Abd: +BS, soft, NT/ND, no masses/organomegaly/ascites Ext: warm, 2+ pulses in UE/LE bilaterally, no clubbing/cyanosis or edema Neuro: nonfocal, patient AA&O x 4, speech intact, no facial droop, moving all extremities on command with equal strength 5/5 Principal Diagnosis INfluenza, COPD exacerbation Discharge Exam Constitutional WD/WN, vitals as above Eyes normal visual oshea by confrontation Neck trachea midline, no thyromegaly normal visual inspection Respiratory normal respiratory effort, + cough, able to speak in complete sentences and symmetric chest movement; no respiratory distress and does not use accessory muscles Auscultation: + rhonchi (Diffuse Rhonci globally) Cardiovascular RRR, no murmur, no edema Rate/Rhythm: regular rate and regular rhythm Extremities: no calf tenderness and no edema Gastrointestinal (Abdomen) normal bowel sounds, soft, nontender, no hepatosplenomegaly Inspection/Auscultation: abdomen normal to inspection; abdomen not distended Percussion/Palpation: abdomen soft; abdomen nontender Skin no rashes, warm and dry Discharge Data Allergies Allergy/AdvReac Type Severity Reaction Status Date / Time moxifloxacin Allergy Severe SHORTNESS Verified 07/19/18 10:56 OF BREATH potassium iodide Allergy Unknown ` Verified 07/19/18 10:56 aspirin AdvReac Mild UPSET Verified 07/19/18 10:56 STOMACH Consultations 07/19/18 13:15 ED Decision to Admit Stat 07/19/18 16:32 Consult Pulmonology Routine Hospital Course (1) COPD exacerbation: 88 year old man with COPD exacerbated by influenza A infection. Influenza Finished course of tamiflu and azithromycin Flu likely exacerbated his baseline COPD. Appears to be improving, patient has remained afebrile and O2 demands at baseline though still complaining of not being back at baseline Explained time course of illness and that it may take time to return fully to baseline. COPD (chronic obstructive pulmonary disease): Patient with history of O2 dependent COPD. -Lung exam much clearer on day of discharge. -Supplemental O2 as needed -DuoNebs q 4 hours -Albuterol q 2 hours PRN - Responded well to respiratory therapies Flutter valve and vibration vest -Patient on methylprednisone, discharging with taper of dexamethasone 6mg x 3 days 4 mg x3 days 2 mg x3 days - Discharged with anticholinergic inhaler, Combivent to be taken 4x/day Hypertension: Blood pressure well controlled at present -Amlodipine 5mg po daily Dyslipidemia: Chronic -Continued Pravastatin daily (2) Flu: (3) Hypertension: (4) SVT (supraventricular tachycardia): (5) Admitted to intensive care unit: (6) Former smoker: Total Time Total Time Spent Total Time Spent (In Minutes): <30 Discharge Plan Discharge Items Patient Disposition: Home - Home Health Services Reason For Visit: INFLUENZA, SOB Discharge Diagnosis: Hypoxemic Respiratory Failure secondary to COPD exacerbation and Influenza A Discharge Goals: Improve disease control Activity: Resume your previous activity Non-emergency contact: Primary Care Provider Call non-emergency contact if: you have any medication questions and your symptoms worsen Follow-up/Referrals: [facility] [Other] - 07/26/18 9:40 am (Please, follow up at [facility] in [place] with Charo ESTES on SundayJuly 26 at 9:40 am. *If you need to change this appointment, call the office at [phone].) Nilay Nicolas PA-C [Primary Care Provider] - 07/31/18 2:15 pm (Please, follow up at [facility] Pulmonology Office with Geovanni Nicolas PA-C on SundayJuly 31 at 2:15 pm. *This office is located in [address] of [facility] building next to this [facility]. If you need to change this appointment, call the office at [phone].) Diet: Regular Addtl Provider Instructions: Mr. Wren, it was truly a pleasure having the opportunity to meet you and your and treat you for your COPD exacerbation caused by influenza infection. Below I have listed your diagnoses and what the plan is to manage each of them. INFLUENZA * You have unfortunately been battling an influenza infection confirmed by nasal swab. * This infection coupled with your already existing lung disease caused your difficulty breathing and hypoxemic respiratory failure. * You completed a full course of tamiflu for the flu, however your symptoms could continue as long as several weeks after discharge. COPD * Aggravated by influenza infection, we have treated you with breathing treatments, steroids and respiratory therapy as well as a full course of tamiflu for the influenza and a full course of azithromycin (an antibiotic) for any bacterial contribution to your COPD * You will be sent home on a steroid taper (Dexamethasone) to help with the lung inflammation. You will taper off this medication as follows Medication will come in 2 mg pills. take 6 mg for three days, 4 mg for three days 2 mg for three days and then stop. * You will also be sent home on a new inhaler, COMBIVENT. This inhaler has an anticholinergic in it. It is NOT a rescue inhaler and you shouldn't expect to feel better right away on taking this medication. It is a MAINTENANCE inhaler and you should take it regularly four times a day as well as continuing to use your home inhalers You should make an appointment with your primary care physician within the next couple of days to further discuss these new medications and follow up from your hospital admission. Prescriptions: New dexamethasone 2 mg tablet 2 mg PO DAILY Qty: 18 RF: 0 Combivent Respimat 20-100 mcg/actuation mist 1 puffs INH Q6H Qty: 4 RF: 0 Continued amlodipine 5 mg tablet 5 mg PO HS RF: 0 albuterol sulfate 2.5 mg /3 mL (0.083 %) Solution For Nebulization 2.5 mg INHALATION QID RF: 0 omeprazole 20 mg Capsule,Delayed Release(Dr/Ec) 20 mg PO DAILY PRN (Reason: Gi Upset) RF: 0 pravastatin 20 mg Tablet 20 mg PO HS RF: 0 albuterol sulfate [Ventolin HFA] 90 mcg/actuation Hfa Aerosol Inhaler 2 puff INHALATION Q6H PRN (Reason: wheezing) RF: 0 Symbicort 160-4.5 mcg/actuation HFA aerosol inhaler 2 inha INH BID Qty: 10.2 RF: 3 Stand-Alone Forms: [facility] Discharge Orders: Discharge Order (Routine); Ordered 07/25/18 Ordered By: Nikolay Decker Admission Data Admit Date/Time: 07/19/18 14:07 Attending Provider: Kj Ocampo Admit Provider: Lisa Mathews Primary Care Provider: Nilay Nicolas Other Providers: Lisa Mathews ; Yeison Tadeo ; Nilay Nicolas ; Mervat Gonzalez ; Toño Fry ; Ethel Darnell ; Brian Rodriguez ; Aicha Welch ; Heena Tirado ; Latia Pelletier ; Stuart Chin ; Clay Aviles ; Everton Russell ; Bennett Palomo ; Charly Lei Service: Telemetry Medical Other Interventions: Discharge Summary Assessment (RN) Last Done: 07/25/18 12:04 DC Date/Time DO NOT enter until pt leaves facility: 07/25/18 13:10 Supervising Physician Co-Signing Physician Notes I personally examined the patient and verified all tucker points of history and exam, discussed case, and agree with decision making with Dr Decker. Ongoing cough and mucus. Ongoing dyspnea on exertion, he seems to be slowly improving and feels up to going home. Extensive discussion with patient on etiology of illness (he did not believe the fluid is what made him sick) and discussed course of getting better, what to watch for, red flags to seek immediate care, as well as his ongoing medical regimen Vitals noted, in general he is awake and alert no distress. He is somewhat easily fatigued but otherwise breathing is unlabored no accessory muscle use. Skin shows no rashes no pallor or icterus. Acute on chronic hypoxic respiratory failure precipitated by influenza superimposed on COPDstable for home as above.
== END 2018-07-25 13:10 | disposition home health service (06) | DRG 193 ==
LOC: ED 10:13 → SUATTDRO 14:07 → 2W 14:07
DX: J62.8 Pneumoconiosis due to other dust containing silica; Z88.8 Allergy status to other drugs, medicaments and biological substances; J44.1 Chronic obstructive pulmonary disease with (acute) exacerbation; Z85.118 Personal history of other malignant neoplasm of bronchus and lung; E78.5 Hyperlipidemia, unspecified; J09.X2 Influenza due to identified novel influenza A virus with other respiratory manifestations; Z87.891 Personal history of nicotine dependence; J96.01 Acute respiratory failure with hypoxia; Z88.5 Allergy status to narcotic agent

== ENCOUNTER 2020-03-31 11:43 | Observation (INO) ==
--- NOTE | 2020-03-31 12:49 | XRay Report ---
XR chest 1V portable HISTORY: 89 years-old Male Dyspnea acute shortness of breath COMPARISON: Chest radiograph 07/21/2018, CTA of the chest 03/17/2018. TECHNIQUE: Portable AP view of the chest FINDINGS: Severe emphysema with pronounced biapical pleural-parenchymal scarring/fibrosis and pleural thickenin g redemonstrated which is again noted to result in superior elevation of the isabelle. No pneumothorax, l arge pleural effusion or overt pulmonary edema. Chronic blunting of the costophrenic angles. Mildly p rogressed ill-defined left lung base opacities. Degenerative changes of the shoulders and spine. Card iac silhouette is unchanged. IMPRESSION: 1. New subtle left lung base opacities are suspicious for a nonspecific infectious or inflammatory pn eumonitis. 2. Severe emphysema with marked biapical pleural-parenchymal scarring redemonstrated resulting in sup erior elevation of the isabelle. ACT 112: Negative or not required by law. The above report was generated using voice recognition software. It may contain grammatical, syntax o r spelling errors. Electronically signed by: Amado Swain M.D. 03/31/2020 12:48 PM
--- NOTE | 2020-03-31 12:54 | Emergency Department Note ---
Impression & Plan COPD exacerbation, Pneumonia, COVID-19 virus infection ED Provider Note NAME: CHAPO ASHTON AGE: 89 SEX: M : 1930 ARRIVES VIA: Walk-In INFORMANT: Patient, the patient's family member as well as the patient's primary bottom turning lathe tender ED PROVIDER(S): Yeison White DO CHIEF COMPLAINT: Shortness of breath HPI: The patient is an 89-year-old male who presented to the emergency department for an evaluation of difficulty breathing. The patient himself states that he has had a productive cough especially over the last few weeks. He states that he went to see his primary bottom turning lathe tender today after a telehealth visit and there is concern the patient may have COVID-19. The patient states that he has no fever but has noticed shortness of breath with cough which was productive for yellow sputum. He has been on multiple rounds of antibiotics recently. His primary bottom turning lathe tender was very concerned about the patient's presentation this morning but also did not want to start him on a course of steroids without his Covid status being known. The patient notices no lower extremity swelling. He denies any specific chest pain. He presented with his daughter who also provides part of the history. He has had no nausea or vom iting. As far as he knows he is had no exposure to COVID-19. The patient states that he was able to cough up some yellow sputum prior to my evaluation and states that he feels much better now. ROS: See above HPI for pertinent positives & negatives. A total of 10 systems reviewed and were otherwise negative. PAST MEDICAL HISTORY: See Below PAST SURGICAL HISTORY: See Below FAMILY HISTORY: See Below SOCIAL HISTORY: See Below HOME MEDICATIONS: See Below ALLERGIES: See Below VITALS: See Below PHYSICAL EXAMINATION: GENERAL: Patient is awake alert in no acute distress patient is resting comfortably and showing no signs of anxiety EYES: The conjunctivae are clear. The pupils are round and reactive. EARS, NOSE, MOUTH AND THROAT: The nose is without any evidence of any deformity. NECK: The neck is nontender and supple. RESPIRATORY: Diminished breath sounds are noted throughout. Scattered rhonchi and wheezing were noted in the upper lung oshea. Diminished breath sounds are noted in the right upper lung field specifically. CARDIOVASCULAR: Regular rate and rhythm noted there no murmurs rubs or gallops normal S1 normal S2. GASTROINTESTINAL: The abdomen is soft. Abdomen is nontender. MUSCULOSKELETAL/EXTREMITIES: There is no evidence of gross deformity full range of motion is noted in the hips and shoulders. SKIN: There is no obvious evidence of any rash. Skin was warm and dry. Trace pedal edema was noted NEUROLOGIC: Patient is awake alert and oriented x3. MEDICAL DECISION MAKING: The patient is an 89-year-old male who presented to the emergency department for an evaluation of difficulty breathing. The patient's had a cough which is productive for sputum. He has been using his bronchodilator therapy at home. He followed up with his bottom turning lathe tender today and was sent to the emergency department for further evaluation. The patient's age as well as his comorbidities warranted further evaluation with radiographic studies and laboratory studies. His significant other also just recently tested positive for COVID-19. The patient was treated with IV steroids and IV antibiotics in emergency department. I discussed the patient's laboratory and radiographic studies with him. He does wear supplemental oxygen intermittently but is required supplemental oxygen continuously recently. For this reason I do not feel the patient would do well as an outpatient. I discussed this possibility with his primary bottom turning lathe tender and he agrees. I will discuss his case with the [facility] for further management and disposition. I discussed the plan with the patient at this time he is agreeable. I also discussed the plan with his daughter Melodie. Triage Nursing notes reviewed. Prior medical records reviewed Vital Signs: reviewed and remarkable for no significant abnormalities Differential diagnosis: Reactive airway disease, pneumonia, pneumothorax, COPD, CHF, infections, cardiac ischemia, pulmonary embolism, musculoskeletal, gastrointestinal, as well as other pathologies. ER treatment provided: See below Diagnostics interpreted by me: ECG: EKG was obtained in the emergency department. My interpretation is normal sinus rhythm at 92 bpm. There was no ectopy. There was no acute ST segment abnormalities noted. This was compared to a tracing from July 19, 2018. No significant changes were noted. Cardiac Monitoring: An order was placed for continuous cardiac monitoring. The monitor shows a rate of 85 bpm with sinus rhythm. Laboratory studies: As stated above and show below. Imaging studies: See below Consultation(s): 1610: I discussed this case with Dr. Tadeo who is the patient's primary bottom turning lathe tender. Past Med/Surg History Medical History COPD (chronic obstructive pulmonary disease) 3L home O2 COPD exacerbation (06/24/13) Delirium Pneumonia (06/24/13) Surgical History H/O colectomy History of lung surgery Family History Mother Hypertension Coronary heart disease Brother Coronary heart disease Other No pertinent family history in first degree relatives Social History Smoking Status: Former smoker Second Hand Exposure: No; Hx Alcohol Use: Yes Alcohol type: beer, wine and hard liquor Hx Substance Use: No Preferred Language: Ukrainian Communication Ability: Effective Solderer [place] Ribs Required: No Beliefs That Will Affect Care: None marital status: Current Living Situation: Significant Other Feels Safe at Home: Yes Assistive Devices: Oxygen - Continuous Allergies Allergies Allergy/AdvReac Type Severity Reaction Status Date / Time moxifloxacin Allergy Severe SHORTNESS Verified 03/31/20 10:54 OF BREATH potassium iodide Allergy Unknown ` Verified 03/31/20 10:54 aspirin AdvReac Mild UPSET Verified 03/31/20 10:54 STOMACH Home Meds Home Medications Medication Instructions Recorded Confirmed albuterol sulfate 2.5 mg INHALATION QID 03/16/18 03/31/20 albuterol sulfate [Ventolin HFA] 2 puff INHALATION Q6H PRN 03/16/18 03/31/20 omeprazole 20 mg PO DAILY PRN 03/16/18 03/31/20 pravastatin 20 mg PO HS 03/16/18 03/31/20 amlodipine 5 mg PO HS 07/19/18 03/31/20 Oxygen Home #1 ea 12/03/18 03/31/20 aspirin 81 mg tablet,delayed 81 mg PO DAILY tab 12/03/18 03/31/20 release budesonide-formoterol HFA 80 2 puffs INH BID 12/05/18 03/31/20 mcg-4.5 mcg/actuation aerosol inhaler potassium chloride 20 meq PO DAILY 03/31/20 03/31/20 Results & Data (ED) Vital Signs Vital Signs - 24 hr 03/31/20 11:52 03/31/20 12:06 03/31/20 12:23 Temperature 37.1 C Temperature Source Temporal Artery Scan Pulse Rate 87 Pulse Rate [Apical] Pulse Rate from SpO2 Sensor Respiratory Rate 20 Respiratory Depth Normal Blood Pressure 124/84 Blood Pressure [Left Arm] Blood Pressure Mean 97 Blood Pressure Mean [Left Arm] Pulse Oximetry 97 98 97 Oxygen Delivery Method Nasal Cannula Nasal Cannula Nasal Cannula Oxygen Flow Rate 4 3 3 Sepsis Recent Fever Within 48 Hours No Sepsis New/Unexplained Change in Mental Status No Sepsis Action Taken by Nursing No Action Required 03/31/20 13:43 03/31/20 14:31 03/31/20 14:40 Temperature Temperature Source Pulse Rate 77 78 Pulse Rate [Apical] 76 Pulse Rate from SpO2 Sensor 78 73 Respiratory Rate 18 21 23 Respiratory Depth Blood Pressure Blood Pressure [Left Arm] 131/70 Blood Pressure Mean Blood Pressure Mean [Left Arm] 90 Pulse Oximetry 98 99 99 Oxygen Delivery Method Nasal Cannula Oxygen Flow Rate 3 Sepsis Recent Fever Within 48 Hours Sepsis New/Unexplained Change in Mental Status Sepsis Action Taken by Nursing 03/31/20 14:50 03/31/20 15:00 03/31/20 15:01 Temperature Temperature Source Pulse Rate 78 75 80 Pulse Rate [Apical] Pulse Rate from SpO2 Sensor 78 73 77 Respiratory Rate 19 22 20 Respiratory Depth Blood Pressure 132/80 Blood Pressure [Left Arm] Blood Pressure Mean 104 Blood Pressure Mean [Left Arm] Pulse Oximetry 99 99 99 Oxygen Delivery Method Oxygen Flow Rate Sepsis Recent Fever Within 48 Hours Sepsis New/Unexplained Change in Mental Status Sepsis Action Taken by [facility] Medications Current Medication List: was personally reviewed by me Laboratory Data Attestation: I reviewed the patient's lab results. Result diagrams: 03/31/20 13:44 03/31/20 13:44 Lab Results 03/31/20 03/31/20 03/31/20 Range/Units 13:44 13:44 13:44 WBC 3.19 L (4.8-10.8) K/uL RBC 4.30 L (4.7-6.1) M/uL Hgb 13.2 L (14.0-18.0) g/dL Hct 39.2 L (42-52) % MCV 91.2 (80-100) fL MCH 30.7 (25-34) pg MCHC 33.7 (32-36) g/dL RDW Std Deviation 46.1 (36.4-46.3) fL RDW Coeff of Iesha 14.0 (11.5-14.5) % Plt Count 177 (130-400) K/uL MPV 10.8 H (7.4-10.4) fL Immature Gran % (Auto) 0.3 % Neut % (Auto) 46.4 % Lymph % (Auto) 23.5 % [place] % (Auto) 29.8 % Eos % (Auto) 0.0 % Baso % (Auto) 0.0 % Neut # (Auto) 1.48 (1.4-6.5) K/uL Lymph # (Auto) 0.75 L (1.2-3.4) K/uL [place] # (Auto) 0.95 H (0.11-0.59) K/uL Eos # (Auto) 0.00 (0-0.5) K/uL Baso # (Auto) 0.00 (0-0.2) K/uL Immature Gran # (Auto) 0.01 (0.00-0.02) K/uL PT 10.6 (9.0-12.0) Seconds INR 1.0 (0.9-1.1) APTT 28.6 (21.0-31.0) Seconds PTT Ratio 1.0 VBG pH (7.36-7.41) VBG pCO2 (38-50) mmHg VBG pO2 mmHg VBG HCO3 mmol/L VBG O2 Saturation % VBG Base Excess mEq/L Barometric Pressure mm/Hg Sodium 136 (136-145) mmol/L Potassium 3.9 (3.5-5.1) mmol/L Chloride 102 (98-107) mmol/L Carbon Dioxide 25 (21-32) mmol/L Anion Gap 8.0 (3-11) BUN 12 (7-18) mg/dl Creatinine 1.03 (0.6-1.4) mg/dl Est Cr Clr Drug Dosing 54.4 ml/min Est GFR ( Amer) 74.8 Est GFR (Non-Af Amer) 64.6 BUN/Creatinine Ratio 11.4 (10-20) Glucose 95 (70-99) mg/dl Calcium 8.7 (8.5-10.1) mg/dl Magnesium 2.5 H (1.8-2.4) mg/dl Total Bilirubin 0.6 (0.2-1) mg/dl AST 40 H (15-37) U/L ALT 45 (12-78) U/L Alkaline Phosphatase 74 (45-117) U/L Troponin I < 0.015 (0-0.045) ng/ml Total Protein 6.6 (6.4-8.2) gm/dl Albumin 3.1 L (3.4-5.0) gm/dl Globulin 3.5 (2.5-4.0) gm/dl Albumin/Globulin Ratio 0.9 (0.9-2) COVID-19 Eval Order COVID-19 PCR (Negative) Nasopharyn COVID-19 PCR Influenza Type A (PCR) (Neg) Influenza Type B (PCR) (Neg) RSV (RT-PCR) (Neg) 03/31/20 03/31/20 03/31/20 Range/Units 13:44 13:45 13:45 WBC (4.8-10.8) K/uL RBC (4.7-6.1) M/uL Hgb (14.0-18.0) g/dL Hct (42-52) % MCV (80-100) fL MCH (25-34) pg MCHC (32-36) g/dL RDW Std Deviation (36.4-46.3) fL RDW Coeff of Iesha (11.5-14.5) % Plt Count (130-400) K/uL MPV (7.4-10.4) fL Immature Gran % (Auto) % Neut % (Auto) % Lymph % (Auto) % [place] % (Auto) % Eos % (Auto) % Baso % (Auto) % Neut # (Auto) (1.4-6.5) K/uL Lymph # (Auto) (1.2-3.4) K/uL [place] # (Auto) (0.11-0.59) K/uL Eos # (Auto) (0-0.5) K/uL Baso # (Auto) (0-0.2) K/uL Immature Gran # (Auto) (0.00-0.02) K/uL PT (9.0-12.0) Seconds INR (0.9-1.1) APTT (21.0-31.0) Seconds PTT Ratio VBG pH 7.47 H (7.36-7.41) VBG pCO2 34 L (38-50) mmHg VBG pO2 47 mmHg VBG HCO3 25 mmol/L VBG O2 Saturation 82.3 % VBG Base Excess 1.3 mEq/L Barometric Pressure 727.6 mm/Hg Sodium (136-145) mmol/L Potassium (3.5-5.1) mmol/L Chloride (98-107) mmol/L Carbon Dioxide (21-32) mmol/L Anion Gap (3-11) BUN (7-18) mg/dl Creatinine (0.6-1.4) mg/dl Est Cr Clr Drug Dosing ml/min Est GFR ( Amer) Est GFR (Non-Af Amer) BUN/Creatinine Ratio (10-20) Glucose (70-99) mg/dl Calcium (8.5-10.1) mg/dl Magnesium (1.8-2.4) mg/dl Total Bilirubin (0.2-1) mg/dl AST (15-37) U/L ALT (12-78) U/L Alkaline Phosphatase (45-117) U/L Troponin I (0-0.045) ng/ml Total Protein (6.4-8.2) gm/dl Albumin (3.4-5.0) gm/dl Globulin (2.5-4.0) gm/dl Albumin/Globulin Ratio (0.9-2) COVID-19 Eval Order Covid19 Sent to [facility] COVID-19 PCR (Negative) Nasopharyn COVID-19 PCR Cancelled Influenza Type A (PCR) (Neg) Influenza Type B (PCR) (Neg) RSV (RT-PCR) (Neg) 03/31/20 Range/Units 13:45 WBC (4.8-10.8) K/uL RBC (4.7-6.1) M/uL Hgb (14.0-18.0) g/dL Hct (42-52) % MCV (80-100) fL MCH (25-34) pg MCHC (32-36) g/dL RDW Std Deviation (36.4-46.3) fL RDW Coeff of Iesha (11.5-14.5) % Plt Count (130-400) K/uL MPV (7.4-10.4) fL Immature Gran % (Auto) % Neut % (Auto) % Lymph % (Auto) % [place] % (Auto) % Eos % (Auto) % Baso % (Auto) % Neut # (Auto) (1.4-6.5) K/uL Lymph # (Auto) (1.2-3.4) K/uL [place] # (Auto) (0.11-0.59) K/uL Eos # (Auto) (0-0.5) K/uL Baso # (Auto) (0-0.2) K/uL Immature Gran # (Auto) (0.00-0.02) K/uL PT (9.0-12.0) Seconds INR (0.9-1.1) APTT (21.0-31.0) Seconds PTT Ratio VBG pH (7.36-7.41) VBG pCO2 (38-50) mmHg VBG pO2 mmHg VBG HCO3 mmol/L VBG O2 Saturation % VBG Base Excess mEq/L Barometric Pressure mm/Hg Sodium (136-145) mmol/L Potassium (3.5-5.1) mmol/L Chloride (98-107) mmol/L Carbon Dioxide (21-32) mmol/L Anion Gap (3-11) BUN (7-18) mg/dl Creatinine (0.6-1.4) mg/dl Est Cr Clr Drug Dosing ml/min Est GFR ( Amer) Est GFR (Non-Af Amer) BUN/Creatinine Ratio (10-20) Glucose (70-99) mg/dl Calcium (8.5-10.1) mg/dl Magnesium (1.8-2.4) mg/dl Total Bilirubin (0.2-1) mg/dl AST (15-37) U/L ALT (12-78) U/L Alkaline Phosphatase (45-117) U/L Troponin I (0-0.045) ng/ml Total Protein (6.4-8.2) gm/dl Albumin (3.4-5.0) gm/dl Globulin (2.5-4.0) gm/dl Albumin/Globulin Ratio (0.9-2) COVID-19 Eval Order COVID-19 PCR POSITIVE A* (Negative) Nasopharyn COVID-19 PCR Influenza Type A (PCR) Negative (Neg) Influenza Type B (PCR) Negative (Neg) RSV (RT-PCR) Negative (Neg) Imaging Data Radiologist's Impression: Patient: CHAPO ASHTON Admit Date: 03/31/20 MR#: [id number] Address1: [address] [place] [address] Acct ID:[id number] Address2: Date: 1930 [facility] Zip: [place] [id number] Age: 89 Location: ED Sex: M Room/Bed: Att Phy: Diagnosis: SOB,COPD EXCERBATION Ratna Phy: Charo Gomez CRNP Service Date: 03/31/20 [facility] Phy: Interpreting Phy: Odell Swain Admit Phy: Ordering Phy: Yeison White, cc: ~ XR chest 1V portable HISTORY: 89 years-old Male Dyspnea acute shortness of breath COMPARISON: Chest radiograph 07/21/2018, CTA of the chest 03/17/2018. TECHNIQUE: Portable AP view of the chest FINDINGS: Severe emphysema with pronounced biapical pleural-parenchymal scarring/fibrosis and pleural thickening redemonstrated which is again noted to result in superior elevation of the isabelle. No pneumothorax, large pleural effusion or overt pulmonary edema. Chronic blunting of the costophrenic angles. Mildly progressed ill-defined left lung base opacities. Degenerative changes of the shoulders and spine. Cardiac silhouette is unchanged. IMPRESSION: 1. New subtle left lung base opacities are suspicious for a nonspecific infectious or inflammatory pneumonitis. 2. Severe emphysema with marked biapical pleural-parenchymal scarring redemonstrated resulting in superior elevation of the isabelle. ACT 112: Negative or not required by law. The above report was generated using voice recognition software. It may contain grammatical, syntax or spelling errors. Electronically signed by: Amado Swain M.D. 03/31/2020 12:48 PM Dictated: 03/31/20 1244 Transcribed: 03/31/20 1244 Blood Pressure Blood Pressure Findings: Normal blood pressure Discharge Plan Visit Data Chief Complaint: Shortness of Breath/Dyspnea Stated Complaint: SOB,COPD EXCERBATION ED Provider: Yeison White Discharge Problem: COPD exacerbation, Pneumonia, COVID-19 virus infection Patient Disposition: Being Evaluated by Hospitalist Condition: Good Forms Stand Alone Forms: [place] Prescriptions Prescriptions: No Action aspirin 81 mg tablet,delayed release (DR/EC) 81 mg PO DAILY RF: 0 (DME) Oxygen Home Liters Per Minute See Dose Instructions .ROUTE .MEDSUPPLY Qty: 1 RF: 0 Symbicort 80-4.5 mcg/actuation HFA aerosol inhaler 2 puffs INH BID RF: 0 amlodipine 5 mg tablet 5 mg PO HS RF: 0 albuterol sulfate 2.5 mg /3 mL (0.083 %) Solution For Nebulization 2.5 mg INHALATION QID RF: 0 omeprazole 20 mg Capsule,Delayed Release(Dr/Ec) 20 mg PO DAILY PRN (Reason: Gi Upset) RF: 0 pravastatin 20 mg Tablet 20 mg PO HS RF: 0 albuterol sulfate [Ventolin HFA] 90 mcg/actuation Hfa Aerosol Inhaler 2 puff INHALATION Q6H PRN (Reason: wheezing) RF: 0 potassium chloride 20 mEq Tablet Extended Release 20 meq PO DAILY RF: 0 Referrals Referrals: Charo Gomez CRNP [Primary Care Provider] - Discharge Problem: Pneumonia Qualifiers: Pneumonia type: due to unspecified organism Laterality: left Lung location: lower lobe of lung Qualified Code(s): J18.9 - Pneumonia, unspecified organism
[2020-03-31 14:00] LABS: Hematocrit (blood only) 39.2 % (42-52); Hemoglobin 13.2 g/dL (14.0-18.0); Immature Granulocytes # (auto) 0.01 K/uL (0.00-0.02); Immature Granulocytes % (auto) 0.3 %; Lymphocytes # (auto) 0.75 K/uL (1.2-3.4); Lymphocytes % (auto) 23.5 %; Mean Corpuscular Hemoglobin 30.7 pg (25-34); Mean Corpuscular Hgb Conc 33.7 g/dL (32-36); Mean Corpuscular Volume 91.2 fL (80-100); Mean Platelet Volume 10.8 fL (7.4-10.4); Monocytes # (auto) 0.95 K/uL (0.11-0.59); Monocytes % (auto) 29.8 %; Neutrophils # (auto) 1.48 K/uL (1.4-6.5); Neutrophils % (auto) 46.4 %; Platelet Count 177 K/uL (130-400); RDW Standard Deviation 46.1 fL (36.4-46.3); White Blood Count 3.19 K/uL (4.8-10.8)
[2020-03-31 14:08] LABS: Base Excess VBG 1.3 mEq/L; Oxygen Saturation VBG 82.3 %; pH VBG 7.47 (7.36-7.41)
[2020-03-31 14:17] LABS: Alanine Aminotransferase 45 U/L (12-78); Albumin Level 3.1 gm/dl (3.4-5.0); Aspartate Aminotransferase 40 U/L (15-37); BUN Creatinine Ratio 11.4 (10-20); Blood Urea Nitrogen 12 mg/dl (7-18); Calcium 8.7 mg/dl (8.5-10.1); Carbon Dioxide 25 mmol/L (21-32); Chloride 102 mmol/L (98-107); Creatinine Clr Calc Pharmacy 54.4 ml/min; Est GFR (African American) 74.8; Est GFR (Non-African American) 64.6; Glucose 95 mg/dl (70-99); Magnesium 2.5 mg/dl (1.8-2.4); Potassium 3.9 mmol/L (3.5-5.1); Sodium 136 mmol/L (136-145)
[2020-03-31 14:19] LABS: Partial Thromboplastin Time 28.6 Seconds (21.0-31.0); Prothrombin Time 10.6 Seconds (9.0-12.0)
[2020-03-31 14:22] LABS: Albumin Globulin Ratio 0.9 (0.9-2); Alkaline Phosphatase 74 U/L (45-117); Bilirubin,Total 0.6 mg/dl (0.2-1); Globulin 3.5 gm/dl (2.5-4.0); Total Protein 6.6 gm/dl (6.4-8.2); Troponin I < 0.015 ng/ml (0-0.045)
--- NOTE | 2020-03-31 14:24 | Electrocardiogram Report ---
Test Reason : Blood Pressure : / mmHG Vent. Rate : 092 BPM Atrial Rate : 092 BPM P-R Int : 204 ms QRS Dur : 098 ms QT Int : 362 ms P-R-T Axes : 081 077 075 degrees QTc Int : 447 ms Normal sinus rhythm with sinus arrhythmia Incomplete right bundle branch block Poor R wave progression, consider anterior NH vs. lead placement vs. LVH Abnormal ECG When compared with ECG of 19-JUL-2018 11:56, Questionable change in initial forces of Anterior leads Confirmed by Yeison Levy ([id number]) on 03/31/2020 2:24:04 PM Referred By: Confirmed By:Yeison Levy
[2020-03-31 15:44] LABS: Influenza A virus by PCR Negative (Neg); Influenza B virus by PCR Negative (Neg); RSV by PCR Negative (Neg)
[2020-03-31 15:59] LABS: SARS CoV2 RNA(COVID-19) InHosp POSITIVE (Negative)
[2020-03-31] MEDS ORDERED: cefTRIAXone SODIUM 1,000 MG/50 ML BAG IV STA (16:10)
[2020-03-31] MEDS ORDERED: DEXAMETHASONE SOD INJ 10 MG/ML VIAL IV ONE (16:10)
--- NOTE | 2020-03-31 17:16 | History & Physical Report ---
Date of Service March 31, 2020 Assessment & Plan (1) COVID-19 virus infection: diagnosed 03/31 will treat with dexamethasone 6mg IV daily, supportive care at this time he has some wheezing from COPD Duoneb q2 PRN he is on 3L NC which is his baseline if breathing gets worse it would be reasonable to use Remdesivir and/or plasma CXR with subtle infiltrate in LLL (2) COPD exacerbation: wheezing on exam, increased work of breathing chronic hypoxia which is stable Decadron, Duonebs q2, Symbicort (3) Hypertension: continue home Norvasc (4) Left lower lobe pneumonia: seen on CXR will treat for COVID with dexamethasone add Rocephin and Zithromax for CAP coverage (5) Acute on chronic respiratory failure with hypoxemia: on 2-3L chronically, here he is on 3L but he has increased work of breathing, COPD exacerbation treat with dexamethasone, supportive care History of Present Illness Chief Complaint: I feel short of breath Primary Care Provider: MEERA Richardson 89 yo male with history of COPD and chronic hypoxic respiratory failure, on 2-3L NC at home, follows with Dr. Tadeo, presented to the ED due to 3 days of worsening shortness of breath, wheezing, cough. He denies any fever/chills, sweats. He says he is eating well, no loss of taste/smell. He denies abdominal pain, nausea, diarrhea. He says he has been using his albuterol nebulizer several times a day as well as Symbicort at night, but feeling worse. To his knowledge he has not been around anyone with COVID. He did not suspect he had COVID until he was tested today in the ED. In ED he was afebrile, saturations in 90's on 3L. CXR with subtle left lower lobe infiltrate. Leukopenia on CBC, BMP with normal electrolytes and CR. He was treated with Decadron and Rocephin. Allergies Allergy/AdvReac Type Severity Reaction Status Date / Time moxifloxacin Allergy Severe SHORTNESS Verified 03/31/20 10:54 OF BREATH potassium iodide Allergy Unknown ` Verified 03/31/20 10:54 aspirin AdvReac Mild UPSET Verified 03/31/20 10:54 STOMACH Home Medications Medication Instructions Recorded Confirmed Type albuterol sulfate 2.5 mg INHALATION QID 03/16/18 03/31/20 History albuterol sulfate [Ventolin HFA] 2 puff INHALATION Q6H PRN 03/16/18 03/31/20 History omeprazole 20 mg PO DAILY PRN 03/16/18 03/31/20 History pravastatin 20 mg PO HS 03/16/18 03/31/20 History amlodipine 5 mg PO HS 07/19/18 03/31/20 History Oxygen Home #1 ea 12/03/18 03/31/20 History aspirin 81 mg tablet,delayed 81 mg PO DAILY tab 12/03/18 03/31/20 History release budesonide-formoterol HFA 80 2 puffs INH BID 12/05/18 03/31/20 History mcg-4.5 mcg/actuation aerosol inhaler potassium chloride 20 meq PO DAILY 03/31/20 03/31/20 History Past Med/Surg History Medical History COPD (chronic obstructive pulmonary disease) 3L home O2 COPD exacerbation (06/24/13) Delirium Pneumonia (06/24/13) Surgical History H/O colectomy History of lung surgery Family History Mother Hypertension Coronary heart disease Brother Coronary heart disease Other No pertinent family history in first degree relatives Social History Smoking Status: Former smoker Second Hand Exposure: No; Do You Dip or Chew Tobacco: No; Tobacco Cessation Education Requested by Patient: No Hx Alcohol Use: No Hx Substance Use: No Preferred Language: Sinhala Communication Ability: Effective Claims Support Specialist Required: No Beliefs That Will Affect Care: None marital status: Current Living Situation: Spouse Other Information That Helps Us Care for You: No Feels Safe at Home: Yes Safety Concerns: Feels Safe At This Time Assistive Devices: Glasses and Oxygen - Continuous Review of Systems Review of Systems: All systems reviewed & are unremarkable except as noted in HPI & below Physical Exam Constitutional: well developed and well nourished; no acute distress Eyes: PERRL, conjunctivae normal, anicteric sclerae ENMT: external ear and nose normal, oropharynx normal Neck: trachea midline, no thyromegaly Respiratory: normal respiratory effort and + cough; no respiratory distress, no labored breathing and not tachypneic Auscultation: + wheezes; no crackles, no rales, no rhonchi and no pleural rub Cardiovascular: RRR, no murmur, no edema Gastrointestinal (Abdomen): normal bowel sounds, soft, nontender, no hepatosplenomegaly Musculoskeletal: no cyanosis or clubbing, extremities motor strength 5/5 Skin: no rashes, warm and dry Neurologic: patellar DTR's 2+ bilat, sensation intact and PERRL, EOMI, accommodation nl, no face palsy, no dysarthria Psychiatric: A+Ox3, euthymic affect Lymphatic: no cervical or axillary lymphadenopathy Results & Data Results & Data ([place]) Vital Signs (Past 12 Hours) Vital Signs Temp Pulse Pulse Resp BP BP Pulse Ox 03/31/20 16:50 72 27 H 99 03/31/20 16:40 74 24 99 03/31/20 16:31 74 19 98 03/31/20 16:30 72 13 152/75 H 98 03/31/20 16:20 74 19 99 03/31/20 16:10 78 19 98 03/31/20 16:01 74 19 99 03/31/20 16:00 74 25 H 128/66 98 03/31/20 15:50 72 19 96 03/31/20 15:40 75 21 99 03/31/20 15:31 74 21 99 03/31/20 15:30 74 23 133/68 99 03/31/20 15:20 73 26 H 98 03/31/20 15:10 70 27 H 98 03/31/20 15:02 77 27 H 98 03/31/20 15:01 80 20 132/80 99 03/31/20 15:00 75 22 99 03/31/20 14:50 78 19 99 03/31/20 14:40 78 23 99 03/31/20 14:31 77 21 99 03/31/20 13:43 76 18 131/70 98 03/31/20 12:23 97 03/31/20 12:06 98 03/31/20 11:52 37.1 C 87 20 124/84 97 Laboratory Results Laboratory Results - last 24 hr 03/31/20 03/31/20 03/31/20 13:44 13:44 13:44 WBC 3.19 L RBC 4.30 L Hgb 13.2 L Hct 39.2 L MCV 91.2 MCH 30.7 MCHC 33.7 RDW Std Deviation 46.1 RDW Coeff of Iesha 14.0 Plt Count 177 MPV 10.8 H Immature Gran % (Auto) 0.3 Neut % (Auto) 46.4 Lymph % (Auto) 23.5 Amador % (Auto) 29.8 Eos % (Auto) 0.0 Baso % (Auto) 0.0 Neut # (Auto) 1.48 Lymph # (Auto) 0.75 L Amador # (Auto) 0.95 H Eos # (Auto) 0.00 Baso # (Auto) 0.00 Immature Gran # (Auto) 0.01 PT 10.6 INR 1.0 APTT 28.6 PTT Ratio 1.0 VBG pH VBG pCO2 VBG pO2 VBG HCO3 VBG O2 Saturation VBG Base Excess Barometric Pressure Sodium 136 Potassium 3.9 Chloride 102 Carbon Dioxide 25 Anion Gap 8.0 BUN 12 Creatinine 1.03 Est Cr Clr Drug Dosing 54.4 Est GFR ( Amer) 74.8 Est GFR (Non-Af Amer) 64.6 BUN/Creatinine Ratio 11.4 Glucose 95 Calcium 8.7 Magnesium 2.5 H Total Bilirubin 0.6 AST 40 H ALT 45 Alkaline Phosphatase 74 Troponin I < 0.015 Total Protein 6.6 Albumin 3.1 L Globulin 3.5 Albumin/Globulin Ratio 0.9 COVID-19 Eval Order COVID-19 PCR Nasopharyn COVID-19 PCR Influenza Type A (PCR) Influenza Type B (PCR) RSV (RT-PCR) 03/31/20 03/31/20 03/31/20 13:44 13:45 13:45 WBC RBC Hgb Hct MCV MCH MCHC RDW Std Deviation RDW Coeff of Iesha Plt Count MPV Immature Gran % (Auto) Neut % (Auto) Lymph % (Auto) Amador % (Auto) Eos % (Auto) Baso % (Auto) Neut # (Auto) Lymph # (Auto) Amador # (Auto) Eos # (Auto) Baso # (Auto) Immature Gran # (Auto) PT INR APTT PTT Ratio VBG pH 7.47 H VBG pCO2 34 L VBG pO2 47 VBG HCO3 25 VBG O2 Saturation 82.3 VBG Base Excess 1.3 Barometric Pressure 727.6 Sodium Potassium Chloride Carbon Dioxide Anion Gap BUN Creatinine Est Cr Clr Drug Dosing Est GFR ( Amer) Est GFR (Non-Af Amer) BUN/Creatinine Ratio Glucose Calcium Magnesium Total Bilirubin AST ALT Alkaline Phosphatase Troponin I Total Protein Albumin Globulin Albumin/Globulin Ratio COVID-19 Eval Order Covid19 Sent to [facility] COVID-19 PCR Nasopharyn COVID-19 PCR Cancelled Influenza Type A (PCR) Influenza Type B (PCR) RSV (RT-PCR) 03/31/20 13:45 WBC RBC Hgb Hct MCV MCH MCHC RDW Std Deviation RDW Coeff of Iesha Plt Count MPV Immature Gran % (Auto) Neut % (Auto) Lymph % (Auto) Amador % (Auto) Eos % (Auto) Baso % (Auto) Neut # (Auto) Lymph # (Auto) Amador # (Auto) Eos # (Auto) Baso # (Auto) Immature Gran # (Auto) PT INR APTT PTT Ratio VBG pH VBG pCO2 VBG pO2 VBG HCO3 VBG O2 Saturation VBG Base Excess Barometric Pressure Sodium Potassium Chloride Carbon Dioxide Anion Gap BUN Creatinine Est Cr Clr Drug Dosing Est GFR ( Amer) Est GFR (Non-Af Amer) BUN/Creatinine Ratio Glucose Calcium Magnesium Total Bilirubin AST ALT Alkaline Phosphatase Troponin I Total Protein Albumin Globulin Albumin/Globulin Ratio COVID-19 Eval Order COVID-19 PCR POSITIVE A* Nasopharyn COVID-19 PCR Influenza Type A (PCR) Negative Influenza Type B (PCR) Negative RSV (RT-PCR) Negative Diagnostic Findings XR chest 1V portable HISTORY: 89 years-old Male Dyspnea acute shortness of breath COMPARISON: Chest radiograph 07/21/2018, CTA of the chest 03/17/2018. TECHNIQUE: Portable AP view of the chest FINDINGS: Severe emphysema with pronounced biapical pleural-parenchymal scarring/fibrosis and pleural thickening redemonstrated which is again noted to result in superior elevation of the isabelle. No pneumothorax, large pleural effusion or overt pulmonary edema. Chronic blunting of the costophrenic angles. Mildly progressed ill-defined left lung base opacities. Degenerative changes of the shoulders and spine. Cardiac silhouette is unchanged. IMPRESSION: 1. New subtle left lung base opacities are suspicious for a nonspecific infectious or inflammatory pneumonitis. 2. Severe emphysema with marked biapical pleural-parenchymal scarring redemonstrated resulting in superior elevation of the isabelle. Code Status & VTE Plan VTE Prophylaxis Plan VTE Prophylaxis will be ordered: Yes PG Care Time/CCT Total # of Minutes Spent Total Time Spent with Patient: Total time spent is greater than 50% in coordination of care (as documented) at patient's floor/unit and/or counseling patient: Coding Level of Care Code 80665 Initial Inpt Care Lvl 3 Diagnoses COVID-19 virus infection U07.1 COPD exacerbation J44.1 Hypertension I10 Hypertension type: essential hypertension Left lower lobe pneumonia J18.9 Acute on chronic respiratory failure with hypoxemia J96.21 (1) Hypertension Hypertension type: essential hypertension Qualified Code(s): I10 - Essential (primary) hypertension
[2020-03-31] MEDS ORDERED: ONDANSETRON INJ 2 MG/ML 2 ML VIAL IV PRN (19:28)
[2020-03-31] MEDS ORDERED: ACETAMINOPHEN 325 MG TAB PO PRN (19:28)
[2020-03-31] MEDS: amLODIPine BESYLATE 5 MG TAB PO SCH (21:15)
[2020-03-31] MEDS: ENOXAPARIN INJ 30 MG/0.3 ML SYR SQ SCH (21:15)
[2020-03-31] MEDS: PRAVASTATIN SOD 20 MG TAB PO SCH (22:00)
[2020-03-31] MEDS: FLUTICASONE/VILANTEROL 100/25MCG 14 PUFFS/INHALER INH SCH (22:00)
[2020-03-31] MEDS: AZITHROMYCIN 500 MG in DEXTROSE 5% 250 ML IV SCH (22:00)
[2020-04-01 05:03] LABS: Hematocrit (blood only) 38.4 % (42-52); Mean Corpuscular Hemoglobin 30.7 pg (25-34); Mean Corpuscular Hgb Conc 33.9 g/dL (32-36); Mean Corpuscular Volume 90.6 fL (80-100); Mean Platelet Volume 10.9 fL (7.4-10.4); Platelet Count 183 K/uL (130-400); RDW Coefficient of Variation 13.7 % (11.5-14.5); RDW Standard Deviation 45.3 fL (36.4-46.3); Red Blood Count 4.24 M/uL (4.7-6.1); White Blood Count 1.23 K/uL (4.8-10.8)
[2020-04-01] MEDS: cefTRIAXone SODIUM 2,000 MG in DEXTROSE 5% 50 ML IV SCH (05:28)
[2020-04-01 05:35] LABS: Albumin Globulin Ratio 0.8 (0.9-2); Albumin Level 2.9 gm/dl (3.4-5.0); BUN Creatinine Ratio 12.2 (10-20); Bilirubin,Total 0.5 mg/dl (0.2-1); Calcium 8.5 mg/dl (8.5-10.1); Creatinine Clr Calc Pharmacy 59.6 ml/min; Est GFR (African American) 83.6; Est GFR (Non-African American) 72.1; Globulin 3.6 gm/dl (2.5-4.0); Potassium 4.8 mmol/L (3.5-5.1); Total Protein 6.5 gm/dl (6.4-8.2)
[2020-04-01 06:03] LABS: Giant Platelets 3+
[2020-04-01 06:13] LABS: ALC (manual) 0.54 K/uL (1.2-3.4); ANC (manual) 0.56 K/uL (1.4-6.5); Basophils # (manual) 0.02 K/uL (0-0.2); Basophils % (manual) 1.6 %; Large Granular Lymph # (manua 0.37 K/uL; Large Granular Lymph % (manual) 29.8 %; Lymphocytes # (manual) 0.18 K/uL (1.2-3.4); Lymphocytes % (manual) 14.5 %; Monocytes # (manual) 0.11 K/uL (0.11-0.59); Monocytes % (manual) 8.9 %; Neutrophils # (manual) 0.56 K/uL (1.4-6.5); Neutrophils % (manual) 45.2 %
[2020-04-01] MEDS: POTASSIUM CHLORIDE CRTAB 20 MEQ TABCR PO SCH (08:07)
[2020-04-01] MEDS: ASPIRIN 81 MG ECTAB PO SCH (08:07)
[2020-04-01] MEDS: ENOXAPARIN INJ 30 MG/0.3 ML SYR SQ SCH ×2 (08:07→23:43)
[2020-04-01] MEDS: dexAMETHasone 6 MG in SYRINGE 0 ML IV SCH (08:13)
[2020-04-01] MEDS: CALCIUM CARBONATE 500 MG CHEWABLE TAB PO PRN ×3 (13:09→18:42)
--- NOTE | 2020-04-01 19:12 | Hospitalist Progress Note ---
Date of Service April 01, 2020 Assessment & Plan (1) COVID-19 virus infection: Positive COVID-19 test 03/31/2020 Patient started on dexamethasone 6 mg IV daily -would discontinue at time of d ischarge No indication for remdesivir or convalescent plasma at this time Chest x-ray does not have bilateral opacities consistent with Covid but does have a a very faint infiltrate at the left lower lobe We will treat empirically with azithromycin and ceftriaxone Check repeat chest x-ray in the morning to make sure there is no progression Continue supportive care (2) Acute on chronic respiratory failure with hypoxemia: Patient with COPD and emphysema and chronic supplemental O2 use at 3 L/min via nasal cannula Currently patient is at baseline oxygen requirements but has dyspnea with exertion and conversation Patient has longstanding shortness of breath On discharge recommend patient refer back to the pulmonary clinic for monitoring Currently patient's SaO2 is 96% on home dose of 3 L/min via nasal cannula (3) Left lower lobe pneumonia: Check repeat chest x-ray in the morning make sure there is no progression or evolution of the faint left lower lobe opacity Continue azithromycin and ceftriaxone for now Afebrile (4) Chronic bronchiectasis not affecting current episode of care: No indication for invasive procedure for clearance We will start a flutter valve today Encourage use (5) COPD exacerbation: Patient on dexamethasone Continue duo nebs as needed Continue Symbicort Continue supplemental oxygen Follow with the outpatient clinic on discharge (6) Hypertension: Generally controlled Continue amlodipine (7) Dyslipidemia: Continue pravastatin (8) DVT prophylaxis: Admission and Anticipated Discharge Date Admission Date: March 31, 2020 Subjective Attending: Dr. Siddharth Jacques Patient seen and examined at bedside. He is in room B12 a. The patient continues to have exertional dyspnea as well as conversational dyspnea. He was referred to the emergency room for evaluation by Dr. Tadeo from the pulmonary office after presenting with what he thought was COPD exacerbation. The patient was found to be positive for Covid on 03/31/2020. Patient symptoms started on 03 28 with progressive shortness of breath wheezing and cough. Patient's and various family members are also Covid positive. Patient states that he continues to have some difficulty with deep inspiration. He also has some wheezes. He denies any fever or chills. He is tolerating steroids well and has no issues with tremor or anxiety. He has no abdominal pain. He denies diarrhea, nausea, or vomiting. He has no other acute complaints. Review of Systems Review of Systems: All systems reviewed & are unremarkable except as noted in Subjective Physical Exam Physical Exam: GENERAL : No acute distress EYES: No icterus, gaze conjugate NOSE: No evidence of epistaxis MOUTH: No lesions or candidiasis NECK: Supple LUNGS: Patient with bronchospasm with forced expiration. Good breath sounds to the bases. Patient has no rhonchi and no evidence of rales at the bases. HEART: Regular, rate controlled ABDOMEN: Soft, NT, ND, BS Present EXTREMITIES: No LE edema, pedal pulses intact NEURO: A&OX3 Results & Data Results & Data ([facility]) Vital Signs (Past 12 Hours) Vital Signs Temp Pulse Pulse Resp BP Pulse Ox 04/01/20 15:00 37.0 C 66 18 100 04/01/20 11:48 36.6 C 70 20 160/90 H 99 04/01/20 08:25 36.9 C 04/01/20 08:08 83 20 146/80 H 98 04/01/20 08:00 66 Laboratory Results 04/01/20 04:09 04/01/20 04:09 Diagnostic Findings No further diagnostic imaging since admission PG Care Time/CCT Total # of Minutes Spent Total Time Spent with Patient: Total time spent is greater than 50% in coordination of care (as documented) at patient's floor/unit and/or counseling patient:35 Coding Level of Care Code 73872 Subseq Hosp Care Lvl 2 Diagnoses COVID-19 virus infection U07.1 Acute on chronic respiratory failure with hypoxemia J96.21 Left lower lobe pneumonia J18.9 Chronic bronchiectasis not affecting current episode of care J47.9 COPD exacerbation J44.1 Hypertension I10 Hypertension type: essential hypertension Dyslipidemia E78.5 DVT prophylaxis Z29.9 (1) Hypertension Hypertension type: essential hypertension Qualified Code(s): I10 - Essential (primary) hypertension
[2020-04-01] MEDS: PRAVASTATIN SOD 20 MG TAB PO SCH (23:42)
[2020-04-01] MEDS: amLODIPine BESYLATE 5 MG TAB PO SCH (23:43)
[2020-04-01] MEDS: FLUTICASONE/VILANTEROL 100/25MCG 14 PUFFS/INHALER INH SCH (23:44)
[2020-04-01] MEDS: AZITHROMYCIN 500 MG in DEXTROSE 5% 250 ML IV SCH (23:49)
[2020-04-02] MEDS: cefTRIAXone SODIUM 2,000 MG in DEXTROSE 5% 50 ML IV SCH (05:45)
[2020-04-02] MEDS: ALBUT/IPRATROP 3MG/0.5MG NEB 3 ML VIAL NEB PRN ×2 (06:00→11:00)
[2020-04-02 06:09] LABS: Hematocrit (blood only) 42.1 % (42-52); Hemoglobin 14.3 g/dL (14.0-18.0); Immature Granulocytes # (auto) 0.01 K/uL (0.00-0.02); Immature Granulocytes % (auto) 0.2 %; Lymphocytes # (auto) 0.69 K/uL (1.2-3.4); Lymphocytes % (auto) 13.8 %; Mean Corpuscular Hemoglobin 30.5 pg (25-34); Mean Corpuscular Volume 89.8 fL (80-100); Monocytes # (auto) 1.12 K/uL (0.11-0.59); Monocytes % (auto) 22.4 %; Neutrophils # (auto) 3.18 K/uL (1.4-6.5); Neutrophils % (auto) 63.6 %; Platelet Count 222 K/uL (130-400); RDW Coefficient of Variation 13.5 % (11.5-14.5); RDW Standard Deviation 44.2 fL (36.4-46.3); Red Blood Count 4.69 M/uL (4.7-6.1)
[2020-04-02 06:44] LABS: BUN Creatinine Ratio 17.3 (10-20); Calcium 8.7 mg/dl (8.5-10.1); Creatinine Clr Calc Pharmacy 52.9 ml/min; Est GFR (African American) 72.3; Est GFR (Non-African American) 62.4; Potassium 3.7 mmol/L (3.5-5.1)
[2020-04-02] MEDS: dexAMETHasone 6 MG in SYRINGE 0 ML IV SCH (09:13)
[2020-04-02] MEDS: ASPIRIN 81 MG ECTAB PO SCH (09:14)
[2020-04-02] MEDS: POTASSIUM CHLORIDE CRTAB 20 MEQ TABCR PO SCH (09:14)
[2020-04-02] MEDS: ENOXAPARIN INJ 30 MG/0.3 ML SYR SQ SCH (09:14)
--- NOTE | 2020-04-02 16:32 | Discharge Summary ---
Date of Service April 02, 2020 Admission HPI Per Admitting Provider 89 yo male with history of COPD and chronic hypoxic respiratory failure, on 2-3L NC at home, follows with Dr. Tadeo, presented to the ED due to 3 days of worsening shortness of breath, wheezing, cough. He denies any fever/chills, sweats. He says he is eating well, no loss of taste/smell. He denies abdominal pain, nausea, diarrhea. He says he has been using his albuterol nebulizer several times a day as well as Symbicort at night, but feeling worse. To his knowledge he has not been around anyone with COVID. He did not suspect he had COVID until he was tested today in the ED. In ED he was afebrile, saturations in 90's on 3L. CXR with subtle left lower lobe infiltrate. Leukopenia on CBC, BMP with normal electrolytes and CR. He was treated with Decadron and Rocephin. Admission Exam Per Admitting Provider Constitutional: well developed and well nourished; no acute distress Eyes: PERRL, conjunctivae normal, anicteric sclerae ENMT: external ear and nose normal, oropharynx normal Neck: trachea midline, no thyromegaly Respiratory: normal respiratory effort and + cough; no respiratory distress, no labored breathing and not tachypneic Auscultation: + wheezes; no crackles, no rales, no rhonchi and no pleural rub Cardiovascular: RRR, no murmur, no edema Gastrointestinal (Abdomen): normal bowel sounds, soft, nontender, no hepatosplenomegaly Musculoskeletal: no cyanosis or clubbing, extremities motor strength 5/5 Skin: no rashes, warm and dry Neurologic: patellar DTR's 2+ bilat, sensation intact and PERRL, EOMI, accommodation nl, no face palsy, no dysarthria Psychiatric: A+Ox3, euthymic affect Lymphatic: no cervical or axillary lymphadenopathy Principal Diagnosis COPD exacerbation COVID-19 Discharge Exam GENERAL : No acute distress EYES: No icterus, gaze conjugate NOSE: No evidence of epistaxis MOUTH: No lesions or candidiasis NECK: Supple LUNGS: Diffuse bronchospasm. This improved with albuterol treatment. Good inspiratory effort. HEART: Regular, rate controlled ABDOMEN: Soft, NT, ND, BS Present EXTREMITIES: No LE edema, pedal pulses intact NEURO: A&OX3 Discharge Data Allergies Allergy/AdvReac Type Severity Reaction Status Date / Time moxifloxacin Allergy Severe SHORTNESS Verified 03/31/20 10:54 OF BREATH potassium iodide Allergy Unknown ` Verified 03/31/20 10:54 aspirin AdvReac Mild UPSET Verified 03/31/20 10:54 STOMACH Consultations 03/31/20 16:11 ED Decision to Admit Stat 03/31/20 19:28 Consult Case Management - Discharge Planning Routine Ordered Studies XR chest 1V portable HISTORY: 89 years-old Male Dyspnea acute shortness of breath COMPARISON: Chest radiograph 07/21/2018, CTA of the chest 03/17/2018. TECHNIQUE: Portable AP view of the chest FINDINGS: Severe emphysema with pronounced biapical pleural-parenchymal scarring/fibrosis and pleural thickening redemonstrated which is again noted to result in superior elevation of the isabelle. No pneumothorax, large pleural effusion or overt pulmonary edema. Chronic blunting of the costophrenic angles. Mildly progressed ill-defined left lung base opacities. Degenerative changes of the shoulders and spine. Cardiac silhouette is unchanged. IMPRESSION: 1. New subtle left lung base opacities are suspicious for a nonspecific infectious or inflammatory pneumonitis. 2. Severe emphysema with marked biapical pleural-parenchymal scarring redemonstrated resulting in superior elevation of the isabelle. ACT 112: Negative or not required by law. The above report was generated using voice recognition software. It may contain grammatical, syntax or spelling errors. Electronically signed by: Amado Swain M.D. 03/31/2020 12:48 PM Hospital Course (1) COVID-19 virus infection: Positive COVID-19 test 03/31/2020 Patient started on dexamethasone 6 mg IV daily * Discontinue at time of discharge as patient is on baseline oxygen requirements No indication for remdesivir or convalescent plasma Chest x-ray does not have bilateral opacities consistent with Covid but does have a a very faint infiltrate at the left lower lobe Treated empirically with azithromycin and ceftriaxone while inpatient * Discharged with azithromycin 500 mg x 3 more doses Patient baseline oxygen requirements of 3 L/min at time of discharge (2) Acute on chronic respiratory failure with hypoxemia: Patient with COPD and emphysema and chronic supplemental O2 use at 3 L/min via nasal cannula Currently patient is at baseline oxygen requirements but has dyspnea with exertion and conversation Patient has longstanding shortness of breath On discharge recommend patient refer back to the pulmonary clinic for monitoring Currently patient's SaO2 is 96% on home dose of 3 L/min via nasal cannula (3) Left lower lobe pneumonia: Continued azithromycin and ceftriaxone while inpatient Discharged with azithromycin 500 mg p.o. daily x3 days Afebrile (4) Chronic bronchiectasis not affecting current episode of care: No indication for invasive procedure for clearance Flutter valve while inpatient Encourage use of incentive spirometer (5) COPD exacerbation: Patient on dexamethasone while inpatient * Discontinue at time of discharge as patient is at baseline Continue duo nebs as needed Continue Symbicort Continue supplemental oxygen Follow with the outpatient clinic on discharge (6) Hypertension: Continue amlodipine (7) Dyslipidemia: Continue pravastatin (8) DVT prophylaxis: Total Time Total Time Spent Total Time Spent (In Minutes): 45 Total Time Includes: Examination of the Patient, Discharge Planning, Medication Reconciliation and Communication With Other Providers Discharge Plan Discharge Items Patient Disposition: Home - Self-Care Reason For Visit: COVID-19 PNEUMONIA Discharge Diagnosis: COVID-19 COPD exacerbation Activity: Resume your previous activity Lifting: Gradually increase as tolerated Bathing: No limitations Sexual Activity: When tolerated Exercise/Sports: Gradually increase as tolerated Weightbearing: Full weightbearing Non-emergency contact: Primary Care Provider Call non-emergency contact if: you have any medication questions, your symptoms worsen and your rectal temperature is above 100.4 Follow-up/Referrals: Charo Gomez CRNP [Primary Care Provider] - Diet: Heart Healthy Addtl Attending Provider Instructions: You were admitted to [facility] with shortness of breath and found to have COVID-19 viral infection. This was complicated by COPD exacerba tion. While you are in the hospital you received dexamethasone (steroid) for your Covid and you received antibiotics for concern about a pneumonia. He will be discharged home on azithromycin (oral antibiotic). You should follow-up with Dr. Tadeo's office within the next 1 to 2 weeks. If you have increased shortness of breath, fever, increased cough, diarrhea, belly pain, you should report to your primary care physician's office or to the emergency department for further evaluation to make sure that the COVID-19 infection is not getting worse. While at home, you should isolate yourself from the rest of the family so you do not contaminate anyone with COVID-19. If you must be in the same room with them, you should wear procedure mask and maintain a distance of at least 6 feet and wash your hands well. If you have further questions about your breathing status, she should call Dr. Tadeo's office. Pending Studies at Discharge: No Visit Report Forms: Albuterol Inhaler Instructions Stand-Alone Forms: My [facility] Medications and DC Order Prescriptions: New azithromycin 500 mg tablet 500 mg PO DAILY 3 Days Qty: 3 RF: 0 Continued aspirin 81 mg tablet,delayed release (DR/EC) 81 mg PO DAILY RF: 0 (DME) Oxygen Home Liters Per Minute See Dose Instructions .ROUTE .MEDSUPPLY Qty: 1 RF: 0 Symbicort 80-4.5 mcg/actuation HFA aerosol inhaler 2 puffs INH BID RF: 0 amlodipine 5 mg tablet 5 mg PO HS RF: 0 albuterol sulfate 2.5 mg /3 mL (0.083 %) Solution For Nebulization 2.5 mg INHALATION QID RF: 0 omeprazole 20 mg Capsule,Delayed Release(Dr/Ec) 20 mg PO DAILY PRN (Reason: Gi Upset) RF: 0 pravastatin 20 mg Tablet 20 mg PO HS RF: 0 potassium chloride 20 mEq Tablet Extended Release 20 meq PO DAILY RF: 0 albuterol sulfate [Ventolin HFA] 90 mcg/actuation Hfa Aerosol Inhaler 2 puff INHALATION Q6H PRN (Reason: wheezing) Qty: 8.5 RF: 0 Discharge Orders: Discharge Order (Routine); Ordered 04/02/20 Ordered By: Toño Keane/Other Patient Handouts: 2019-nCoV, COVID-19 Prevention, COVID-19 Home Care, Caring for Someone Who Has COVID-19, Disinfecting Your Home of COVID-19 Admission Data Admit Date/Time: 03/31/20 17:14 Attending Provider: Siddharth Jacques Admit Provider: Siddharth Jacques Primary Care Provider: Charo Gomez Other Providers: Stew Walsh Other Interventions: Discharge Summary Assessment (RN) Last Done: 04/02/20 13:57 Supervising Physician Co-Signing Physician Notes Patient seen and examined on the day of discharge. I agree with the discharge summary by Toño CASTLE. I have reviewed the chart including labs, imaging and plans for discharge. patient breathing well on 3L, his baseline, mild wheezing but that is normal for him eating well, no fever, he wants to go home - LLL pneumonia: complete 3 more days of Zithromax - COVID 19: at baseline 3L NC requirement, no need to continue Dexamethasone - COPD: exacerbation resolved, continue nebulizers at home Coding Level of Care Code D/C Day Management >30 mins Diagnoses COVID-19 virus infection U07.1 Acute on chronic respiratory failure with hypoxemia J96.21 Left lower lobe pneumonia J18.9 Chronic bronchiectasis not affecting current episode of care J47.9 COPD exacerbation J44.1 Hypertension I10 Hypertension type: essential hypertension Dyslipidemia E78.5 DVT prophylaxis Z29.9 Time Spent (min) 45
== END 2020-04-02 14:16 | disposition home or self-care (01) | DRG 177 ==
LOC: ED 11:43 → EDINP 17:14 → INTOOBSV 17:14 → 2S 04-01 20:26